=== PATIENT | female | born 1940 | race Caucasian/White ===

== ENCOUNTER → 2016-10-07 | Day surgery (SDC) | payer MEDICARE ==
[~2016-10-07] MED LIST: ATEN50 PO; BUPIVACAINE HCL PF 0.5% 10 ML VIAL ONE; CALCTAB23 PO; CARD120C4 PO; CLIN1CAP6 PO; CLINDAMYCIN PHOS 900 MG/6 ML VIAL ONE; COUM2.5T PO; COUM5TAB PO; DOXY100 PO; ESTR0.5T PO; FURO20 PO; GALA12TA PO; LACTATED RINGER'S 1000 ML INJ 1,000 ML ONE; LEVO75TA3 PO; LIPI20TA PO; MULTTAB4 PO; NAME10TA PO; ONDANSETRON HCL 4 MG/2 ML VIAL IV PUSH ONE; POTA10TA2 PO; PROPOFOL 200 MG/20 ML AMP IV ONE; SODIUM CHLORIDE 0.9% 100 ML ADDBAG IV ONE; TIOT18I INH; VITA400C28 PO
--- NOTE | 2016-10-07 13:10 | TN ---
cc: NANI WRIGHT DATE OF SURGERY: 10/07/2016 PREOPERATIVE DIAGNOSIS Atypical ductal hyperplasia of the left breast. POSTOPERATIVE DIAGNOSIS Atypical ductal hyperplasia of the left breast. PROCEDURE PERFORMED Left breast needle-localized lumpectomy. SURGEON Nani Wright ANESTHESIA General via LMA device. INDICATION The patient is a 76-year-old who had an area of microcalcifications in the lower inner left breast. Stereotactic biopsy demonstrated atypical ductal hyperplasia and she now presents for re-excision of the area. FINDINGS At the time of surgery the wire was identified at 9 o'clock, 5 cm from the nipple. Specimen mammography did demonstrate an intact wire and the biopsy clip was within the specimen. PROCEDURE After informed consent was obtained and site verification was performed, the patient was brought to the radiology suite where she underwent needle localization of her prior biopsy site using mammography. She was then brought to the major operating room where she underwent general anesthesia via an LMA device. She was given a single dose of IV clindamycin due to penicillin allergy and sequential compression hose were placed. The left breast was prepped and draped in sterile fashion. Half-strength Marcaine without epinephrine was used to infiltrate in the periareolar left breast and both sharp and electrocautery dissection were performed until the wire entry point through the skin was identified and secured with a hemostat. The wire was cut off at the skin with pin cutters and a 2-0 silk transfixion suture was placed at the wire entry point into the breast tissue. Circumferential dissection was then performed around the wire and the specimen was oriented with two sutures anteriorly, one long suture laterally, and one short suture superiorly. Specimen mammogram did demonstrate an intact wire and the biopsy clip was present. The specimen was then sent for permanent pathologic evaluation. Hemostasis was easily obtained with electrocautery and the wound was closed using interrupted 3-0 Vicryl subcutaneous sutures and a 4-0 Monocryl subcuticular suture. Steri-Strips and a sterile dressing were applied. The patient tolerated the procedure well with minimal blood loss, and she was extubated in the operating room and brought to the recovery room in good condition. MD PATRICIA Walker/KENYON /12:47 PM /12:57 PM
== END | disposition home or self-care (01) ==
LOC: ESDC 08:54
PROVIDERS: ATTEND Surgery
DX: N60.92 Unspecified benign mammary dysplasia of left breast (principal)
CPT/HCPCS: 00400; 19125; 88307; J2405; J3010; J7120

== ENCOUNTER 2017-02-20 16:30 | Inpatient (IN) | payer MEDICARE ==
[~2017-02-20] VITALS: Ht 160 cm; Wt 90.1 kg
[2017-02-20] VITALS (7 sets, daily range): BP systolic 129–162; BP diastolic 77–95; PULSE 83–100; RESP 16–20; TEMP 98.2–98.7; O2SAT 94–95
[~2017-02-20 16:30] MED LIST changes: -BUPIVACAINE HCL PF 0.5% 10 ML VIAL ONE; -CLINDAMYCIN PHOS 900 MG/6 ML VIAL ONE; -LACTATED RINGER'S 1000 ML INJ 1,000 ML ONE; -ONDANSETRON HCL 4 MG/2 ML VIAL IV PUSH ONE; -PROPOFOL 200 MG/20 ML AMP IV ONE; -SODIUM CHLORIDE 0.9% 100 ML ADDBAG IV ONE
[2017-02-20] MEDS ORDERED: SODIUM CHLOR 0.9% 1000 ML INJ 1,000 ML IV SCH (17:01)
--- NOTE | 2017-02-20 17:30 | HHI.HP ---
HPI Service [facility] Hospitalists Primary Care Physician Adri Reynolds MD Admission Diagnosis Altered mental status Chief Complaint: Lethargic, diarrhea, confusion Travel History International Travel<30 Days: No Contact w/Intl Traveler <30 Da: No Traveled to Known Affected Are: No History of Present Illness Mrs. Keith is a pleasant 77 y/o WF with A. fibrillation on chronic anticoagulation with Coumadin, HTN, hyperlipidemia, diet controlled diabetes mellitus, and dementia. Pt was brought to the ED from her local [place] by her daughter for AMS. Her daughter, Holly, is at the bedside and she states that she was called by the nursing staff at [facility] yesterday and was told that the patient didn't seem to be "acting like herself." Apparently they pts dishes were still in the sink and the kitchen was a bit messy which is unusual for her. Her daughter had a nurse go check on her as she was out of town and the nurse reported that the patient seemed to be doing well. When her daughter went to check on the patient today she noted that the patient seemed to be more confused than her baseline and was more lethargic. There was some noted diarrhea on the bedsheets and the pt was unaware of this and could not recall having had diarrhea at that time. Pt now reports two episodes of diarrhea yesterday. She relates this to foods she has eaten. She also noted some slight dizziness today and felt like she might fall but has not fallen. Described it more as vertigo like symptoms with the room spinning when she stood up but this resolved on its own. She reports that she has had this intermittent dizziness for several months, which typically occurs when she stand up. Denies any fevers/ chills, abd pain, nausea/vomiting, SOB, chest pain, or palpitations. Denies any urinary frequency, dysuria, or hematuria. No reported sore throat, cough, congestion, headache, or rhinorrhea. She reports that she has been eating and drinking normally. At the time of examination in the ED pt was noted to have what appears to be a significant dali infection in the inguinal area and under the skin folds of the lower abdomen, worse on the right side. Pt reports that this has been an issues for some time but has not reported this to anyone. Her daughter was unaware of this. Review of Systems Constitutional: DENIES: Fever, Chills Ears, nose, mouth, throat: COMPLAINS OF: Vertigo, DENIES: Nasal discharge, Throat pain, Running Nose, Sinus Pain Respiratory: DENIES: Cough, Sputum production, Shortness of breath Cardiovascular: DENIES: Chest pain, Palpitations, Dyspnea on Exertion, Lower Extremity Edema Gastrointestinal: COMPLAINS OF: Diarrhea, DENIES: Abdominal pain, Constipation , Nausea, Vomiting, Difficulty Swallowing Genitourinary: DENIES: Urinary frequency, Urinary incontinence, Urgency, Hematuria, Dysuria Musculoskeletal: DENIES: Joint pain Integumentary: COMPLAINS OF: Abnormal pigmentation (see HPI) Neurologic: DENIES: Headache, Seizures, Speech Problems, Poor Balance Psychiatric: COMPLAINS OF: Confusion, DENIES: Depression, Hallucinations, Agitation Past Family Social History Past Medical History Chronic atrial fibrillation COPD HTN Diabetes mellitus, type 2, diet controlled, Hgb A1C 6.4% in 07/2016 Dementia Hypothyroidism Hyperlipidemia IBS Peripheral neuropathy Recurrent UTI Venous insufficiency Fatty liver Diverticulosis GERD/gastritis Hx of GIB related to polypectomy site Past Surgical History Left breast lumpectomy in 09/2016, benign Appendectomy Bladder surgery Cataract surgery Total knee arthroplasty Vaginal hysterectomy Allergies: Coded Allergies: amoxicillin (Unverified Allergy, Severe, CANT REMEMBER, 02/20/17) oxybutynin (Unverified Allergy, Severe, ITCHING AND RASH, 02/20/17) penicillin G (Unverified Allergy, Severe, UNKNOWN, 02/20/17) sulfamethoxazole (Unverified Allergy, Severe, Rash, 02/20/17) trimethoprim (Unverified Allergy, Severe, Rash, 02/20/17) ezetimibe (Unverified Allergy, Unknown, PATIENT CANT REMEMBER THIS ALLERGY , 02/20/17) CAME ON MD ORDER SHEET . Family History Noncontributory Social History Pt with a hx of tobacco use, 60 pack year history Hx of alcohol use Pt is , her is in the nursing care side at [facility]. Pt lives in the [facility] at [facility] Physical Exam Vital Signs Vital Signs Date Time Temp Pulse Resp B/P (MAP) Pulse Ox O2 Delivery O2 Flow Rate FiO2 02/20/17 16:55 88 20 147/80 (102) 94 Room Air 02/20/17 16:47 98.7 02/20/17 16:32 98.2 96 20 129/89 (102) 95 Room Air Physical Exam GENERAL: This is a well-nourished, well-developed patient, in no apparent distress. SKIN: Beefy red erythema under the skin folds in the lower abdomen, worse on the right side, and in the inguinal folds. HEENT: Atraumatic. Normocephalic. No temporal or scalp tenderness. No scleral icterus. Airway patent. NECK: Trachea midline, supple, nontender. CARDIO: Irregular RESP: CTA bilaterally. No wheezes, rales, or rhonchi. ABD: +BS, soft, non-tender, nondistended. EXT: Extremities without clubbing, cyanosis, or edema. NEURO: Awake and alert. Motor and sensory grossly within normal limits. Normal speech. Septic Shock Reassessment Heart: Irregular Lungs: Clear Skin: Warm Caprini VTE Risk Assessment Caprini VTE Risk Assessment: Mod/High Risk (score >= 2) Caprini Risk Assessment Model Point Value = 1 Point Value = 2 Point Value = 3 Point Value = 5 Age 41-60 Minor surgery BMI > 25 kg/m2 Swollen legs Varicose veins or History of unexplained or recurrent spontaneous Oral contraceptives or hormone replacement Sepsis (< 1 month) Serious lung disease, including pneumonia (< 1 month) Abnormal pulmonary function Acute myocardial infarction Congestive heart failure (< 1 month) History of inflammatory bowel disease Medical patient at bed rest Age 61-74 Arthroscopic surgery Major open surgery (> 45 min) Laparoscopic surgery (> 45 min) Malignancy Confined to bed (> 72 hours) Immobilizing plaster cast Central venous access Age >= 75 History of VTE Family history of VTE Factor V Leiden Prothrombin [id number] Lupus anticoagulant Anticardiolipin antibodies Elevated serum homocysteine Heparin-induced thrombocytopenia Other congenital or acquired thrombophilia Stroke (< 1 month) Elective arthroplasty Hip, pelvis, or leg fracture Acute spinal cord injury (< 1 month) Prophylaxis Regimen Total Risk Factor Score Risk Level Prophylaxis Regimen 0-1 Low Early ambulation 2 Moderate Order ONE of the following: *Sequential Compression Device (SCD) *Heparin 5000 units SQ BID 3-4 Higher Order ONE of the following medications: *Heparin 5000 units SQ TID *Enoxaparin/Lovenox 40 mg SQ daily (WT < 150 kg, CrCl > 30 mL/min) *Enoxaparin/Lovenox 30 mg SQ daily (WT < 150 kg, CrCl > 10-29 mL/min) *Enoxaparin/Lovenox 30 mg SQ BID (WT < 150 kg, CrCl > 30 mL/min) AND/OR *Sequential Compression Device (SCD) 5 or more Highest Order ONE of the following medications: *Heparin 5000 units SQ TID (Preferred with Epidurals) *Enoxaparin/Lovenox 40 mg SQ daily (WT < 150 kg, CrCl > 30 mL/min) *Enoxaparin/Lovenox 30 mg SQ daily (WT < 150 kg, CrCl > 10-29 mL/min) *Enoxaparin/Lovenox 30 mg SQ BID (WT < 150 kg, CrCl > 30 mL/min) AND *Sequential Compression Device (SCD) Assessment and Plan Problem List: (1) Altered mental status ICD Codes: R41.82 - Altered mental status, unspecified Status: Acute Plan: - Pt is a 77 y/o female with chronic atrial fibrillation on anticoagulation with Coumadin, HTN, hyperlipidemia, dementia, and diet controlled diabetes mellitus. - Pt was brought to the ED with AMS/confusion which seemed to start around 2 days ago, etiology unclear. - Pt had some reported diarrhea and dizziness today. Labs indicate some degree of dehydration and elevated WBC count of 16.7 - Pt also with hx of recurrent UTIs and her UA is significantly abnormal. In the past she has had E. coli UTIs and the culture/sensitivities from her most recent UTI was in 07/2016 - She does have some baseline dementia but has still been quite functional. - Head CT is ordered by the ED and is pending - CXR is pending as well. - Give IVF - Check C. diff - We will give Cefepime for the abnormal UA and hx of recurrent UTI, based on the previous C/S - Await final cultures - Repeat labs in AM - Telemetry - PT evaluation - Supportive care - DVT prophylaxis with SCDs, await INR results. (2) Atrial fibrillation ICD Codes: I48.91 - Atrial fibrillation Status: Chronic Plan: - Cont. home meds - Await INR before resuming Coumadin (she has been on 5mg [id number] and 2.5mg on --) - Pts last INR was checked on 02/11 and was 2.2 (3) HTN (hypertension) ICD Codes: I10 - Hypertension Status: Chronic Plan: - Cont. home meds - Monitor (4) Diabetes ICD Codes: E11.9 - Diabetes mellitus Status: Chronic Plan: - Diet controlled diabetes - Last Hgb A1C was 6.4% 07/2016 (5) Hyperlipidemia ICD Codes: E78.5 - Hyperlipidemia Status: Chronic Plan: - Cont. home meds (6) Dementia ICD Codes: F03.90 - Dementia Status: Chronic Plan: - Cont. home meds Assessment and Plan Patient examined. Assessment and plan formulated with Frannie Jasso PA-C. I agree with the above. Physician Certification 2 Midnight Certification Type: Admission for Inpatient Services Order for Inpatient Services The services are ordered in accordance with Medicare regulations or non- Medicare payer requirements, as applicable. In the case of services not specified as inpatient-only, they are appropriately provided as inpatient services in accordance with the 2-midnight benchmark. Estimated LOS (days): 2 2 days is the estimated time the patient will need to remain in the hospital, assuming treatment plan goals are met and no additional complications. Post-Hospital Plan: Not yet determined Problem Qualifiers (1) Altered mental status: Qualified Codes: R41.82 - Altered mental status, unspecified (2) Atrial fibrillation: Qualified Codes: I48.2 - Chronic atrial fibrillation (3) HTN (hypertension): Qualified Codes: I10 - Essential (primary) hypertension (4) Diabetes: (5) Dementia: Qualified Codes: F03.90 - Unspecified dementia without behavioral disturbance Frannie Jasso Feb 20, 2017 17:30 Herber Boles MD Feb 21, 2017 21:09
[2017-02-20] MEDS: NYSTATIN 100,000 U/GM PWD 15 GM BTL TOPICAL SCH ×2 (17:45→23:16)
[2017-02-20 17:53] LABS: BACTERIA, URINE MOD /hpf; BLOOD, URINE MOD (NEG); GLUCOSE,URINE NEG (NEG); KETONE, URINE TRACE mg/dL (NEG); MUCUS URINE FEW /lpf (OCC); NITRITE,URINE NEG (NEG); SQUAMOUS EPITHELIAL CELL URINE <1 /hpf (0-5); URINE COLOR YELLOW (YELLW/STRAW)
--- NOTE | 2017-02-20 17:53 | PD ---
HPI Chief Complaint: Altered Mental Status Time Seen by Provider: 17:01 Travel History International Travel<30 days: No Contact w/Intl Traveler<30days: No Traveled to known affect area: No History of Present Illness HPI 77-year-old female that presents to the ED for evaluation of confusion and lethargy since yesterday. Per daughter who is the power of district attorney she's been more confused since yesterday. Per mother she is usually very talkative and very with it except for some confusion which is normal for her secondary to her dementia. She has a history of ventral fibrillation and frequent UTIs for which she takes doxycycline to prevent this. She takes Coumadin as well. Denies any fevers chills or sweats. Patient herself is somewhat of a good historian but she does appear to be somewhat somnolent on exam. She denies any pain of any kind. She is able to answer questions appropriately. She denies any rashes or injuries. No chest pain or shortness of breath. No head injury of any kind. Daughter is present who actually this is the patient very frequently and is the one to noted the changes in mentation since yesterday. No cough or congestion. No other medical issues at this time. Patient does have multiple allergies to different antibiotics. PFSH Past Medical History Hx Anticoagulant Therapy: Yes (COUMADIN) Anemia: Yes Arthritis: Yes (RA) Atrial Fibrillation: Yes Autoimmune Disease: No Blood Disorders: No Anxiety: No Depression: No Heart Rhythm Problems: Yes Cancer: No Cardiovascular Problems: Yes High Cholesterol: Yes Chemotherapy: No Congestive Heart Failure: Yes COPD: Yes Dementia: Yes Diabetes: Yes (PRE) Patient Takes Glucophage: No Diminished Hearing: No Endocrine: No Gastrointestinal Disorders: Yes (GI bleed. colonoscopy.) Genitourinary: Yes (UTI) Hypertension: Yes Immune Disorder: No Musculoskeletal: Yes Neurologic: Yes Psychiatric: No Reproductive: No Respiratory: Yes (HAY Fever as child) Radiation Therapy: No Sickle Cell Disease: No Thyroid Disease: Yes Triglycerides - High: Yes ?: Not : 3 Para: 3 Past Surgical History Abdominal Surgery: Yes AICD: No Appendectomy: Yes Arteriovenous Shunt: No Gynecologic Surgery: Yes Hysterectomy: Yes Insulin Pump: No Joint Replacement: Yes (LEFT KNEE) Oral Surgery: Yes (T & A) Pacemaker: No Tonsillectomy: Yes Other Surgery: Yes (CYSTOCELE,RECTOCELE 2006) Social History Alcohol Use: Yes Tobacco Use: No Substance Use: No Allergies-Medications (Allergen,Severity, Reaction): Coded Allergies: amoxicillin (Unverified Allergy, Severe, CANT REMEMBER, 02/20/17) oxybutynin (Unverified Allergy, Severe, ITCHING AND RASH, 02/20/17) penicillin G (Unverified Allergy, Severe, UNKNOWN, 02/20/17) sulfamethoxazole (Unverified Allergy, Severe, Rash, 02/20/17) trimethoprim (Unverified Allergy, Severe, Rash, 02/20/17) ezetimibe (Unverified Allergy, Unknown, PATIENT CANT REMEMBER THIS ALLERGY , 02/20/17) CAME ON MD ORDER SHEET . Reported Meds & Prescriptions Reported Meds & Active Scripts Active Review of Systems Except as stated in HPI: all other systems reviewed are Neg Physical Exam Narrative GENERAL: Somewhat lethargic but easily arousable and answers questions a properly SKIN: Warm and dry. HEAD: Atraumatic. Normocephalic. EYES: Pupils equal and round. No scleral icterus. No injection or drainage. ENT: No nasal bleeding or discharge. Mucous membranes pink and moist. Tongue is midline. No uvula deviation. NECK: Trachea midline. No JVD. CARDIOVASCULAR: Regular rate and rhythm. No murmurs, S3, S4. RESPIRATORY: No accessory muscle use. Clear to auscultation. Breath sounds equal bilaterally. GASTROINTESTINAL: Abdomen soft, non-tender, nondistended. Hepatic and splenic margins not palpable. MUSCULOSKELETAL: Extremities without clubbing, cyanosis, or edema. No obvious deformities. Full range of motion of the upper and lower extremities bilaterally. 2+ pulses bilaterally. NEUROLOGICAL: Awake and alert and oriented 4. No obvious cranial nerve deficits. Motor grossly within normal limits. Five out of 5 muscle strength in the arms and legs. Normal speech. PSYCHIATRIC: Appropriate mood and affect; insight and judgment normal. Data Data Last Documented VS Vital Signs Date Time Temp Pulse Resp B/P (MAP) Pulse Ox O2 Delivery O2 Flow Rate FiO2 02/20/17 17:35 94 Room Air 02/20/17 16:55 88 20 02/20/17 16:47 98.7 Orders Orders Electrocardiogram (02/20/17 17:01) Complete Blood Count With Diff (02/20/17 17:01) Comprehensive Metabolic Panel (02/20/17 17:01) Ckmb (Isoenzyme) Profile (02/20/17 17:01) Troponin I (02/20/17 17:) Prothrombin Time / Inr (Pt) (02/20/17:) Act Partial Throm Time (Ptt) (02/20/17 17:) Blood Culture (02/20/17 17:) Urinalysis - C+S If Indicated (02/20/17 17:) Cath For Specimen (02/20/17:) Magnesium (Mg) (02/20/17 17:) Thyroid Stimulating Hormone (02/20/17 17:01) Chest, Single Ap (02/20/17 17:) Ct Brain W/O Iv Contrast(Rout) (02/20/17 17:) Iv Access Insert/Monitor (02/20/17 17:) Ecg Monitoring (02/20/17 17:) Oximetry (02/20/17 17:) Lactic Acid Sepsis Protocol (02/20/17 17:) Sodium Chlor 0.9% 1000 Ml Inj (Ns 1000 M (02/20/17 17:01) C Diff Toxin Pcr (02/20/17 17:07) Admit To Inpatient (02/20/17 ) Scd Bilateral/Knee High JAY JAY.QSHIFT (02/20/17 17:39) Vital Signs (Adult) JAY JAY.Q4H (02/20/17 17:39) Medical Technologist Generalist / Telemetry JAY JAY.Q8H (02/20/17 17:39) Activity Oob With Assistance (02/20/17 17:39) Consult Pt Eval & Treat (02/20/17 17:39) Inpatient Certification (02/20/17 ) Nystatin Powder (Mycostatin Powder) (02/20/17 17:45) Admit Order (Ed Use Only) (02/20/17 17:49) CKMB (02/20/17 17:30) CKMB% (02/20/17 17:30) Labs Laboratory Tests Test 02/20/17 17:30 White Blood Count 16.7 TH/MM3 Red Blood Count 4.51 MIL/MM3 Hemoglobin 13.3 GM/DL Hematocrit 40.1 % Mean Corpuscular Volume 88.8 FL Mean Corpuscular Hemoglobin 29.6 PG Mean Corpuscular Hemoglobin Concent 33.3 % Red Cell Distribution Width 14.3 % Platelet Count 192 TH/MM3 Mean Platelet Volume 9.4 FL Neutrophils (%) (Auto) 87.2 % Lymphocytes (%) (Auto) 4.0 % Monocytes (%) (Auto) 8.2 % Eosinophils (%) (Auto) 0.3 % Basophils (%) (Auto) 0.3 % Neutrophils # (Auto) 14.5 TH/MM3 Lymphocytes # (Auto) 0.7 TH/MM3 Monocytes # (Auto) 1.4 TH/MM3 Eosinophils # (Auto) 0.0 TH/MM3 Basophils # (Auto) 0.1 TH/MM3 CBC Comment DIFF FINAL Differential Comment Prothrombin Time 21.2 SEC Prothromb Time International Ratio 1.9 RATIO Activated Partial Thromboplast Time 51.0 SEC Urine Color YELLOW Urine Turbidity CLOUDY Urine pH 6.0 Urine Specific [place] 1.017 Urine Protein 100 mg/dL Urine Glucose (UA) NEG mg/dL Urine Ketones TRACE mg/dL Urine Occult Blood MOD Urine Nitrite NEG Urine Bilirubin NEG Urine Urobilinogen LESS THAN 2.0 MG/DL Urine Leukocyte Esterase LARGE Urine RBC 9 /hpf Urine WBC /hpf Urine WBC Clumps MANY Urine Squamous Epithelial Cells <1 /hpf Urine Bacteria MOD /hpf Urine Mucus FEW /lpf Microscopic Urinalysis Comment CATH-CULTURE IND Blood Urea Nitrogen 23 MG/DL Creatinine 1.11 MG/DL Random Glucose 92 MG/DL Total Protein 7.3 GM/DL Albumin 3.0 GM/DL Calcium Level 9.2 MG/DL Magnesium Level 2.0 MG/DL Alkaline Phosphatase 79 U/L Aspartate Amino Transf (AST/SGOT) 31 U/L Alanine Aminotransferase (ALT/SGPT) 28 U/L Total Bilirubin 0.7 MG/DL Sodium Level 131 MEQ/L Potassium Level 3.6 MEQ/L Chloride Level 97 MEQ/L Carbon Dioxide Level 24.8 MEQ/L Anion Gap 9 MEQ/L Estimat Glomerular Filtration Rate 48 ML/MIN Lactic Acid Level 1.1 mmol/L Total Creatine Kinase 119 U/L Creatine Kinase MB 1.3 NG/ML Troponin I LESS THAN 0.02 NG/ML Thyroid Stimulating Hormone 3rd Gen 2.820 uIU/ML MDM Medical Decision Making Medical Screen Exam Complete: Yes Emergency Medical Condition: Yes Medical Record Reviewed: Yes Interpretation(s) CBC & BMP Diagram 02/20/17 17:30 Total Protein 7.3, Albumin 3.0 L, Calcium Level 9.2, Magnesium Level 2.0, Alkaline Phosphatase 79, Aspartate Amino Transf (AST/SGOT) 31, Alanine Aminotransferase (ALT/SGPT) 28, Total Bilirubin 0.[address] 02/20/171700 Signed Impressions: Service Date/Time: Monday, February 20, 2017 18:00 - CONCLUSION: Negative noncontrast CT. John Shepard MD Chest X-Ray 02/20/171700 Signed Impressions: Service Date/Time: Monday, February 20, 2017 17:51 - CONCLUSION: No acute disease. John Shepard MD EKG show a troponin fibrillation but no sign of RVR. No sign of acute ischemia or arrhythmia. Read by me and attending. UA shows UTI Differential Diagnosis Altered mental status versus UTI versus atrial fibrillation versus dementia versus CVA versus sepsis Narrative Course 77-year-old female that presents to the ED for evaluation of altered mental status. Patient was properly examined and was found to have signs and symptoms consistent with altered mental status. Patient does have a history of dementia and has had a dramatic change in the past 2 days. No sign of acute neurological deficits. Labs and imaging were ordered. She does have comorbidities for different disease. Case was discussed with Dr. Burdick who came and evaluated the patient before blood work had been done and agrees with admission to his service. Patient blood work here did show what appears to be UTI with slight leukocytosis. This was deferred to Dr. Burdick for further care. Procedures EKG Prior to Arrival: No Diagnosis Primary Impression: Altered mental status Qualified Codes: R41.82 - Altered mental status, unspecified Additional Impressions: Dementia Qualified Codes: F03.90 - Unspecified dementia without behavioral disturbance UTI (urinary tract infection) Qualified Codes: N30.01 - Acute cystitis with hematuria Atrial fibrillation Qualified Codes: I48.2 - Chronic atrial fibrillation HTN (hypertension) Qualified Codes: I10 - Essential (primary) hypertension Admitting Information Admitting Physician Requests: Admit Junior Tee Feb 20, 2017 17:53
[2017-02-20 17:54] LABS: AUTOMATED NEUTROPHIL # 14.5 TH/MM3 (1.8-7.7); BASOPHIL # 0.1 TH/MM3 (0-0.2); BASOPHIL % 0.3 % (0.0-2.0); COMMENT (UR) CATH-CULTURE IND; CULTURE IF INDICATED CATH CULTURE IND; EOSINOPHIL % 0.3 % (0.0-4.0); HEMATOCRIT 40.1 % (35.0-46.0); HEMO FLAGS DIFF FINAL; LYMPHOCYTE # 0.7 TH/MM3 (1.0-4.8); MEAN CELL VOLUME 88.8 FL (80.0-100.0); MEAN CORPUSCULAR HEMOGLOBIN 29.6 PG (27.0-34.0); MEAN CORPUSCULAR HGB CONC 33.3 % (32.0-36.0); MONO % 8.2 % (0.0-8.0); NEUT % 87.2 % (16.0-70.0); PLATELET COUNT 192 TH/MM3 (150-450); RED BLOOD COUNT 4.51 MIL/MM3 (4.00-5.30); RED CELL DISTRIBUTION WIDTH 14.3 % (11.6-17.2); WHITE BLOOD COUNT 16.7 TH/MM3 (4.0-11.0)
[2017-02-20 18:03] LABS: INTERNATIONAL NORMALIZED RATIO 1.9 RATIO; PROTHROMBIN TIME - PATIENT 21.2 SEC (9.8-11.6)
[2017-02-20 18:04] LABS: ANION GAP 9 MEQ/L (5-15); AST (GOT) 31 U/L (15-37); BICARBONATE 24.8 MEQ/L (21.0-32.0); BLOOD UREA NITROGEN 23 MG/DL (7-18); CHLORIDE 97 MEQ/L (98-107); GLOMERULAR FILTRATION RATE 48 ML/MIN (>89); POTASSIUM 3.6 MEQ/L (3.5-5.1); SODIUM (NA) 131 MEQ/L (136-145)
[2017-02-20 18:05] LABS: ALT (GPT) 28 U/L (10-53)
--- NOTE | 2017-02-20 18:08 | RADRPT ---
EXAM DATE/TIME: 02/20/2017 18:00 [facility] COMPARISON: CT BRAIN W/O CONTRAST, January 08, 2012, 20:10. INDICATIONS : Altered mental status for two days. RADIATION DOSE: 36.22 CTDIvol (mGy) MEDICAL HISTORY : Dementia. Congestive heart failure. Hypertension.diabetes SURGICAL HISTORY : Hysterectomy. ENCOUNTER: Initial ACUITY: 1 day PAIN SCALE: 0/10 LOCATION: Bilateral head TECHNIQUE: Multiple contiguous axial images were obtained of the head. Using automated exposure control and adj ustment of the mA and/or kV according to patient size, radiation dose was kept as low as reasonably a chievable to obtain optimal diagnostic quality images. DICOM format image data is available electro nically for review and comparison. FINDINGS: CEREBRUM: The ventricles are normal for age with moderate atrophic changes again noted. No evidence of midline shift, mass lesion, hemorrhage or acute infarction. No extra-axial fluid collections are seen. POSTERIOR FOSSA: The cerebellum and brainstem are intact. The 4th ventricle is midline. The cerebellopontine angle i s unremarkable. EXTRACRANIAL: The visualized portion of the orbits is intact. SKULL: The calvaria is intact. No evidence of skull fracture. CONCLUSION: Negative noncontrast CT. John Shepard MD on February 20, 2017 at 18:05 Board Certified Radiologist. This report was verified electronically.
--- NOTE | 2017-02-20 18:09 | RADRPT ---
EXAM DATE/TIME: 02/20/2017 17:51 [facility] COMPARISON: CHEST SINGLE AP, June 13, 2015, 21:44. INDICATIONS : Syncope. MEDICAL HISTORY : Hypertension. Chronic obstructive pulmonary disease. Atrial fibrillation. SURGICAL HISTORY : None. ENCOUNTER: Initial ACUITY: 1 day PAIN SCORE: 0/10 LOCATION: Bilateral chest FINDINGS: A single view of the chest demonstrates the lungs to be symmetrically aerated without evidence of mas s, infiltrate or effusion. The cardiomediastinal contours are unremarkable. Osseous structures are intact. Atherosclerotic calcifications are present in the aorta. CONCLUSION: No acute disease. John Shepard MD on February 20, 2017 at 18:08 Board Certified Radiologist. This report was verified electronically.
[2017-02-20 18:14] LABS: ALKALINE PHOSPHATASE 79 U/L (45-117); CREATINE KINASE 119 U/L (26-192); TOTAL BILIRUBIN ADULT 0.7 MG/DL (0.2-1.0)
[2017-02-20] MEDS ORDERED: ONDANSETRON HCL 4 MG/2 ML VIAL IV PRN (18:15)
[2017-02-20] MEDS ORDERED: ACETAMINOPHEN 325 MG TAB PO PRN (18:15)
[2017-02-20 18:27] LABS: CKMB 1.3 NG/ML (0.5-3.6)
[2017-02-20] MEDS ORDERED: RESP: ALBUTEROL 2.5 MG/IPRATROPIUM 0.5 MG NEB (PRN) NEB (18:30)
[2017-02-20] MEDS ORDERED: COUM5TAB PO (20:05)
[2017-02-20] MEDS ORDERED: DOXY100C PO (20:05)
[2017-02-20] MEDS ORDERED: DILT-60 PO (20:05)
[2017-02-20] MEDS ORDERED: ONCETAB7 PO (20:05)
[2017-02-20] MEDS ORDERED: SERT25TA83 PO (20:05)
[2017-02-20] MEDS ORDERED: CHOL1CAP8 PO (20:05)
[2017-02-20] MEDS ORDERED: CALC12502 PO (20:05)
[2017-02-20] MEDS ORDERED: UMEC1AER INH (20:05)
[2017-02-20] MEDS ORDERED: ATOR20TA15 PO (20:05)
[2017-02-20] MEDS ORDERED: LEVO75TA3 PO (20:05)
[2017-02-20] MEDS ORDERED: VITA10002 PO (20:05)
[2017-02-20] MEDS ORDERED: GALA16CA PO (20:05)
[2017-02-20] MEDS ORDERED: COUM2.5T PO (20:05)
[2017-02-20] MEDS ORDERED: NAME10TA PO (20:05)
[2017-02-20] MEDS ORDERED: ATEN50TA PO (20:05)
[2017-02-20] MEDS: SODIUM CHLOR 0.9% 1000 ML INJ 1,000 ML IV SCH (22:07)
[2017-02-20] MEDS: CEFEPIME INJ 1,000 MG in SODIUM CHLORIDE 0.9% INJ 100 ML IV SCH (22:09)
[2017-02-20] MEDS: MEMANTINE HCL 10 MG TAB PO SCH (22:11)
[2017-02-20] MEDS: ATENOLOL 50 MG TAB PO SCH (22:11)
[2017-02-20] MEDS: SERTRALINE HCL 50 MG TAB PO SCH (22:11)
[2017-02-20] MEDS: ATORVASTATIN 20 MG TAB PO SCH (22:12)
[2017-02-21] VITALS (8 sets, daily range): BP systolic 130–150; BP diastolic 69–92; PULSE 77–95; RESP 18–22; TEMP 97.5–98.7; O2SAT 93–97
[2017-02-21] MEDS: LEVOTHYROXINE SODIUM 75 MCG TAB PO SCH (05:11)
[2017-02-21] MEDS: NYSTATIN 100,000 U/GM PWD 15 GM BTL TOPICAL SCH ×3 (05:13→23:06)
[2017-02-21 05:56] LABS: C. DIFF EPI 027 PRESUMPTIVE NEGATIVE (NEGATIVE)
[2017-02-21] MEDS: SODIUM CHLOR 0.9% 1000 ML INJ 1,000 ML IV SCH (06:45)
[2017-02-21] MEDS: CEFEPIME INJ 1,000 MG in SODIUM CHLORIDE 0.9% INJ 100 ML IV SCH ×2 (08:00→20:24)
[2017-02-21 08:47] LABS: AUTOMATED NEUTROPHIL # 14.4 TH/MM3 (1.8-7.7); BASOPHIL % 0.3 % (0.0-2.0); EOSINOPHIL # 0.1 TH/MM3 (0-0.4); EOSINOPHIL % 0.3 % (0.0-4.0); HEMATOCRIT 38.2 % (35.0-46.0); HEMO FLAGS DIFF FINAL; LYMPH % 3.6 % (9.0-44.0); LYMPHOCYTE # 0.6 TH/MM3 (1.0-4.8); MEAN CELL VOLUME 89.7 FL (80.0-100.0); MEAN CORPUSCULAR HEMOGLOBIN 29.5 PG (27.0-34.0); MEAN CORPUSCULAR HGB CONC 32.9 % (32.0-36.0); MONO % 9.2 % (0.0-8.0); NEUT % 86.6 % (16.0-70.0); PLATELET COUNT 187 TH/MM3 (150-450); RED BLOOD COUNT 4.26 MIL/MM3 (4.00-5.30); RED CELL DISTRIBUTION WIDTH 14.5 % (11.6-17.2); WHITE BLOOD COUNT 16.6 TH/MM3 (4.0-11.0)
[2017-02-21 08:57] LABS: INTERNATIONAL NORMALIZED RATIO 2.4 RATIO; PROTHROMBIN TIME - PATIENT 27.9 SEC (9.8-11.6)
[2017-02-21] MEDS: DILTIAZEM-CD 120 MG CAP ER PO SCH (09:16)
[2017-02-21] MEDS: GALANTAMINE HYDROBROMIDE 4 MG TAB PO SCH (09:16)
[2017-02-21] MEDS: MEMANTINE HCL 10 MG TAB PO SCH ×2 (09:16→20:27)
[2017-02-21] MEDS: ATENOLOL 50 MG TAB PO SCH ×2 (09:16→20:28)
[2017-02-21] MEDS: SERTRALINE HCL 50 MG TAB PO SCH ×2 (09:16→20:27)
--- NOTE | 2017-02-21 09:33 | HHI.PR ---
Subjective Remarks ambulating with PT this AM pt says she feels better. denies any cp/sob/abdomen pain Objective Vitals mild dementia sx's not oriented to time/year heart reg lung cta abd s/nt ext no pitting lower abdomen fold/inguinal raised erythema rash/nontender Vital Signs Date Time Temp Pulse Resp B/P (MAP) Pulse Ox O2 Delivery O2 Flow Rate FiO2 02/21/17 08:14 97.9 95 22 141/76 (97) 95 02/21/17 07:26 89 02/21/17 04:00 98.4 90 18 150/81 (104) 93 02/21/17 00:00 98.0 79 18 130/69 (89) 96 02/20/17 20:00 98.2 83 18 162/95 (117) 95 02/20/17 19:00 02/20/17 17:50 88 16 162/77 (105) 94 Room Air 02/20/17 17:35 94 Room Air 02/20/17 17:20 100 16 147/83 (104) 95 Room Air 02/20/17 16:55 88 20 147/80 (102) 94 Room Air 02/20/17 16:47 98.7 02/20/17 16:32 98.2 96 20 129/89 (102) 95 Room Air Result Diagram: 02/21/17 0743 02/20/17 1730 A/P Problem List: (1) Altered mental status ICD Codes: R41.82 - Altered mental status, unspecified Status: Acute Plan: 1. mild acute delirium superimposed on mild to mod dementia. so far culprits include diarrhea with mild dehydration and maryam hyponatremia. uti 2. afib controlled. anticoagulated 3. hx recurrent uti's on chronic suppressive therapy with doxy. prior to that macrobid. 4. htn 5. hypothyroidism 6. yeast infection groin/lower abdomen gentle NS hydration. stop if na, bun/cr corrected c. diff pcr negative. PT and oob daily. ambulated this AM. OT consultation cont emperic abx to cover broadly...(reviewed her most recent u/a and cx from pcp office in 07/17...ecoli very resistant) f/u blood and urine cx's her bmp pending for today. cont topical nystatin. will update family when they arrive. (2) Atrial fibrillation ICD Codes: I48.91 - Atrial fibrillation Status: Chronic (3) HTN (hypertension) ICD Codes: I10 - Hypertension Status: Chronic Plan: - Cont. home meds - Monitor (4) Diabetes ICD Codes: E11.9 - Diabetes mellitus Status: Chronic Plan: - Diet controlled diabetes - Last Hgb A1C was 6.4% 07/2016 (5) Hyperlipidemia ICD Codes: E78.5 - Hyperlipidemia Status: Chronic Plan: - Cont. home meds (6) Dementia ICD Codes: F03.90 - Dementia Status: Chronic Plan: - Cont. home meds (7) Hypothyroid ICD Codes: E03.9 - Hypothyroidism, unspecified Status: Chronic Problem Qualifiers (1) Altered mental status: Qualified Codes: R41.82 - Altered mental status, unspecified (2) Atrial fibrillation: Qualified Codes: I48.2 - Chronic atrial fibrillation (3) HTN (hypertension): Qualified Codes: I10 - Essential (primary) hypertension (4) Diabetes: (5) Dementia: Qualified Codes: F03.90 - Unspecified dementia without behavioral disturbance Herber Boles MD Feb 21, 2017 09:33
[2017-02-21 09:44] LABS: BICARBONATE 20.9 MEQ/L (21.0-32.0); MAGNESIUM 2.1 MG/DL (1.5-2.5); POTASSIUM 3.1 MEQ/L (3.5-5.1)
[2017-02-21] MEDS ORDERED: POTASSIUM CHLORIDE 20 MEQ CONTROLLED RELEASE TAB PO ONE (10:30)
--- NOTE | 2017-02-21 13:49 | EKG ---
Date Performed: 02/20/2017 Time Performed: 17:00:36 PTAGE: 77 years EKG: ATRIAL FIBRILLATION BORDERLINE LEFT AXIS DEVIATION ABNORMAL RHYTHM ECG PREVIOUS TRACING 02/13/17 Since previous tracing, no significant change. DOCTOR: Herber Antonio Interpretating Date/Time 02/21/2017 13:48:15
[2017-02-21] MEDS ORDERED: WARFARIN SOD 5 MG TAB PO SCH (16:00)
[2017-02-21] MEDS: ATORVASTATIN 20 MG TAB PO SCH (20:28)
[2017-02-22] VITALS (8 sets, daily range): BP systolic 138–170; BP diastolic 79–97; PULSE 77–95; RESP 18; TEMP 97.8–98.4; O2SAT 91–96
[2017-02-22] MEDS: NYSTATIN 100,000 U/GM PWD 15 GM BTL TOPICAL SCH ×3 (05:16→21:28)
[2017-02-22] MEDS: LEVOTHYROXINE SODIUM 75 MCG TAB PO SCH (05:16)
[2017-02-22] MEDS: GALANTAMINE HYDROBROMIDE 4 MG TAB PO SCH (08:16)
[2017-02-22] MEDS: MEMANTINE HCL 10 MG TAB PO SCH ×2 (08:16→21:26)
[2017-02-22] MEDS: ATENOLOL 50 MG TAB PO SCH ×2 (08:16→21:25)
[2017-02-22] MEDS: CEFEPIME INJ 1,000 MG in SODIUM CHLORIDE 0.9% INJ 100 ML IV SCH (08:16)
[2017-02-22] MEDS: SERTRALINE HCL 50 MG TAB PO SCH ×2 (08:16→21:26)
[2017-02-22] MEDS: DILTIAZEM-CD 120 MG CAP ER PO SCH (08:16)
[2017-02-22 09:34] LABS: AUTOMATED NEUTROPHIL # 10.1 TH/MM3 (1.8-7.7); BASOPHIL % 0.3 % (0.0-2.0); EOSINOPHIL # 0.1 TH/MM3 (0-0.4); HEMATOCRIT 38.4 % (35.0-46.0); HEMO FLAGS DIFF FINAL; LYMPH % 4.6 % (9.0-44.0); LYMPHOCYTE # 0.5 TH/MM3 (1.0-4.8); MEAN CELL VOLUME 88.2 FL (80.0-100.0); MEAN CORPUSCULAR HEMOGLOBIN 28.9 PG (27.0-34.0); MEAN CORPUSCULAR HGB CONC 32.8 % (32.0-36.0); MONO % 9.6 % (0.0-8.0); NEUT % 84.5 % (16.0-70.0); PLATELET COUNT 207 TH/MM3 (150-450); RED BLOOD COUNT 4.36 MIL/MM3 (4.00-5.30); RED CELL DISTRIBUTION WIDTH 14.3 % (11.6-17.2); WHITE BLOOD COUNT 11.9 TH/MM3 (4.0-11.0)
[2017-02-22 09:37] LABS: INTERNATIONAL NORMALIZED RATIO 4.1 RATIO; PROTHROMBIN TIME - PATIENT 47.6 SEC (9.8-11.6)
--- NOTE | 2017-02-22 09:50 | HHI.PR ---
Subjective Remarks No new complaints. Objective Vitals Vital Signs Date Time Temp Pulse Resp B/P (MAP) Pulse Ox O2 Delivery O2 Flow Rate FiO2 02/22/17 08:22 98.1 94 18 138/97 (111) 02/22/17 04:00 98.4 95 18 159/96 (117) 93 02/22/17 03:28 79 02/22/17 00:00 97.8 77 18 142/79 (100) 96 02/21/17 20:00 97.5 77 18 138/92 (107) 96 02/21/17 15:59 98.7 86 20 150/78 (102) 97 02/21/17 12:06 97.6 85 20 137/72 (93) 96 02/22/17 02/22/17 02/23/17 15:00 23:00 07:00 Intake Total 140 ml Balance 140 ml Intake Oral 140 ml Result Diagram: 02/22/17 0908 02/21/17 0743 Imaging Last Impressions Head CT 02/20/171700 Signed Impressions: Service Date/Time: Monday, February 20, 2017 18:00 - CONCLUSION: Negative noncontrast CT. John Shepard MD Chest X-Ray 02/20/171700 Signed Impressions: Service Date/Time: Monday, February 20, 2017 17:51 - CONCLUSION: No acute disease. John Shepard MD A/P Problem List: (1) Altered mental status ICD Codes: R41.82 - Altered mental status, unspecified Status: Acute Plan: - Pt is a 77 y/o female with chronic atrial fibrillation on anticoagulation with Coumadin, HTN, hyperlipidemia, dementia, and diet controlled diabetes mellitus. - Pt was brought to the ED with AMS/confusion which seemed to start around 2 days ago, etiology unclear. - Pt had some reported diarrhea and dizziness today. Labs indicate some degree of dehydration and elevated WBC count of 16.7 - Pt also with hx of recurrent UTIs and her UA is significantly abnormal. In the past she has had E. coli UTIs and the culture/sensitivities from her most recent UTI was in 07/2016 - She does have some baseline dementia but has still been quite functional. - Head CT (02/20) --> NO acute findings - CXR (02/20) --> NO acute findings - IVF given, stopped - C. diff --> negative - Urine Cx (02/20) --> E. Coli ESBL - Pt started on Cefepime 02/21 based on the previous C/S - Consultation placed for ID. Case d/w Dr. Anderson (02/22). She will consult. - NO fever. WBC has decreased from 16.7 (02/20), 11.9 (02/22) - Continue PT - Telemetry - PT evaluation - Supportive care - DVT prophylaxis with SCDs, await INR results. (2) Infection due to ESBL-producing Escherichia coli ICD Codes: A49.8 - Other bacterial infections of unspecified site; Z16.12 - Extended spectrum beta lactamase (ESBL) resistance Plan: - see above (3) Supratherapeutic INR ICD Codes: R79.1 - Abnormal coagulation profile Plan: - stop coumadin - repeat INR in AM - currently NO signs of bleeding - consider Vitamin K, if INR continues to rise (4) Atrial fibrillation ICD Codes: I48.91 - Atrial fibrillation Status: Chronic Plan: - Cardizem CD, atenolol - see above (5) HTN (hypertension) ICD Codes: I10 - Hypertension Status: Chronic Plan: - stable - cardizem CD, atenolol (6) Diabetes ICD Codes: E11.9 - Diabetes mellitus Status: Chronic Plan: - Diet controlled diabetes - Last Hgb A1C was 6.4% 07/2016 (7) Hyperlipidemia ICD Codes: E78.5 - Hyperlipidemia Status: Chronic Plan: - Cont. home meds (8) Dementia ICD Codes: F03.90 - Dementia Status: Chronic Plan: - Cont. home meds Problem Qualifiers (1) Altered mental status: Qualified Codes: R41.82 - Altered mental status, unspecified (2) Atrial fibrillation: Qualified Codes: I48.2 - Chronic atrial fibrillation (3) HTN (hypertension): Qualified Codes: I10 - Essential (primary) hypertension (4) Diabetes: (5) Dementia: Qualified Codes: F03.90 - Unspecified dementia without behavioral disturbance Donald Rosario DO Feb 22, 2017 09:50
[2017-02-22 10:04] LABS: BICARBONATE 24.2 MEQ/L (21.0-32.0); POTASSIUM 3.4 MEQ/L (3.5-5.1)
[2017-02-22] MEDS ORDERED: POTASSIUM CHLORIDE 20 MEQ CONTROLLED RELEASE TAB PO ONE (10:30)
--- NOTE | 2017-02-22 13:31 | PD.ID.CON ---
History of Present Illness Service ID Consult Requested By Reason for Consult Evaluation and Mment of Sepsis secondary to ESBL E.coli UTI. Primary Care Physician Adri Reynolds MD Diagnoses: History of Present Illness Most of the history was from review of medical records and d.w patients daughter Holly. Mrs. Keith is a pleasant 77 y/o WF with A. fibrillation on chronic anticoagulation with Coumadin, HTN, hyperlipidemia, diet controlled diabetes mellitus, and dementia. At baseline patient lives [place] and is independent with some ADLs such as walking unassisted, self care, bathing etc. Her daughter manages her finances and bills etc. With this background patient was brought to the [facility] ED from her [place] by daughter. Her daughter, Holly states that she was called by the nursing staff at [facility] and was told that the patient didn't seem to be "acting like herself." Patient reportedly had an episode of loose BM but was unaware of this episode. Reported history of dizziness but no falls. No reported history of any fevers/chills, abd pain, nausea/vomiting, SOB, chest pain, or palpitations. No reported history of any urinary frequency, dysuria, or hematuria. No reported sore throat, cough, congestion, headache, or rhinorrhea. Daughter reports several episodes of UTI which reportedly were symptomatic and required antibiotics. Upon questioning about allergies she reports her Mom was told by her Mom to avoid penicillins but details not known. Patient has tolerated Cefepime during this hospitalization and daughter made aware. ID consulted for evaluation and Mment of Sepsis secondary to ESBL E.coli UTI. Review of Systems ROS Limitations: Altered Mental Status Past Family Social History Allergies: Coded Allergies: amoxicillin (Unverified Allergy, Severe, CANT REMEMBER, 02/20/17) oxybutynin (Unverified Allergy, Severe, ITCHING AND RASH, 02/20/17) penicillin G (Unverified Allergy, Severe, UNKNOWN, 02/20/17) sulfamethoxazole (Unverified Allergy, Severe, Rash, 02/20/17) trimethoprim (Unverified Allergy, Severe, Rash, 02/20/17) ezetimibe (Unverified Allergy, Unknown, PATIENT CANT REMEMBER THIS ALLERGY , 02/20/17) CAME ON MD ORDER SHEET . Past Medical History Chronic atrial fibrillation COPD HTN Diabetes mellitus, type 2, diet controlled, Hgb A1C 6.4% in 07/2016 Dementia Hypothyroidism Hyperlipidemia IBS Peripheral neuropathy Recurrent UTI Venous insufficiency Fatty liver Diverticulosis GERD/gastritis Hx of GIB related to polypectomy site Past Surgical History Left breast lumpectomy in 09/2016, benign Appendectomy Bladder surgery Cataract surgery Total knee arthroplasty Vaginal hysterectomy Reported Medications Reported Meds & Active Scripts Active Reported Coumadin (Warfarin) 5 Mg Tab 5 Mg PO SUN,TUES,CARMEN,SAT Coumadin (Warfarin) 2.5 Mg Tab 2.5 Mg PO MWF Sertraline (Sertraline HCl) 25 Mg Tab 25 Mg PO BID Doxycycline Hyclate 100 Mg Cap 100 Mg PO 3XWEEK Anoro Ellipta Inh (Umeclidinium/Vilanterol) 62.5-25 Mcg/Act Aero 1 Puff INH DAILY Atenolol 50 Mg Tab 50 Mg PO BID Vitamin B-12 (Cyanocobalamin) 1,000 Mcg Tab 1,000 Mcg PO DAILY Namenda (Memantine) 10 Mg Tab 10 Mg PO BID Calcium Carbonate 500 Mg Calcium (1250 Mg) Tab 1,250 Mg PO DAILY 1,250 mg calcium carbonate (500 mg elemental calcium) Once Daily (Multivitamin) 1 Each Tablet 1 Tab PO DAILY Atorvastatin (Atorvastatin Calcium) 20 Mg Tab 20 Mg PO HS Diltiazem CD 24 HR 120 Mg Caper 120 Mg PO DAILY Levothyroxine (Levothyroxine Sodium) 75 Mcg Tab 75 Mcg PO DAILY Vitamin D3 (Cholecalciferol) 400 Unit Cap 400 Units PO DAILY Galantamine ER (Galantamine Hydrobromide) 16 Mg Caper 16 Mg PO DAILY Active Ordered Medications Current Medications Medications (Trade) Dose Ordered Sig/Mary Route Start Time Stop Time Status Last Admin (Mycostatin Powder) 1 applic Q8HR TOPICAL 02/20/17 17:45 02/22/17 11:37 (Tylenol) 650 mg Q4H PRN PO 02/20/17 18:15 (Zofran Inj) 4 mg Q6H PRN IV 02/20/17 18:15 (Cardizem Cd) 120 mg DAILY PO 02/21/17 09:00 02/22/17 08:16 (Tenormin) 50 mg Q12HR PO 02/20/17 21:00 02/22/17 08:16 (Lipitor) 20 mg HS PO 9/23/17 21:00 02/21/17 20:28 (Razadyne) 16 mg DAILY PO 02/21/17 09:00 02/22/17 08:16 (Synthroid) 75 mcg DAILY@0600 PO 02/21/17 06:00 02/22/17 05:16 (Namenda) 10 mg Q12HR PO 02/20/17 21:00 02/22/17 08:16 (Zoloft) 25 mg BID PO 02/20/17 21:00 02/22/17 08:16 (Duoneb Neb) 1 ampule Q4HR NEB PRN NEB 02/20/17 18:30 (Catapres) 0.1 mg Q6H PRN PO 02/20/17 20:30 (ASP Crit: Doc ESBL, MDR A baumannii or P aer) 1 UNSCH X1 PRN .XX 02/22/17 13:45 02/23/17 13:44 ([facility]) 1 UNSCH X1 PRN XX 02/22/17 13:45 02/23/17 13:44 Ertapenem 1000 mg/ Sodium Chloride 100 ml @ 200 mls/hr Q24H IV 02/22/17 15:00 02/22/17 15:39 (Micatin 2% Cream) 1 applic Q12HR TOPICAL 02/22/17 14:00 02/22/17 14:51 (Diflucan) 100 mg DAILY PO 02/22/17 14:00 02/22/17 14:51 Family History Noncontributory to age. reviewed. Social History Pt with a hx of tobacco use, 60 pack year history Hx of alcohol use Pt is , her is in the nursing care side at [facility]. Pt lives in the [place] at [facility]. Physical Exam Vital Signs Vital Signs Date Time Temp Pulse Resp B/P (MAP) Pulse Ox O2 Delivery O2 Flow Rate FiO2 02/22/17 13:24 98.0 95 18 147/88 (107) 94 02/22/17 10:03 90 02/22/17 08:22 98.1 94 18 138/97 (111) 02/22/17 04:00 98.4 95 18 159/96 (117) 93 02/22/17 03:28 79 02/22/17 00:00 97.8 77 18 142/79 (100) 96 02/21/17 20:00 97.5 77 18 138/92 (107) 96 02/21/17 15:59 98.7 86 20 150/78 (102) 97 Physical Exam GENERAL: Obese, well-developed patient, in no apparent distress. SKIN: No rashes, ecchymoses or lesions. Cool and dry. HEAD: Atraumatic. Normocephalic. No temporal or scalp tenderness. EYES: Pupils equal round and reactive. Extraocular motions intact. No scleral icterus. No injection or drainage. ENT: Nose without bleeding, purulent drainage or septal hematoma. Throat without erythema, tonsillar hypertrophy or exudate. Uvula midline. Airway patent. NECK: Trachea midline.Supple, nontender, no meningeal signs. CARDIOVASCULAR: Regular rate and rhythm without murmurs, gallops, or rubs. RESPIRATORY: Clear to auscultation. Breath sounds equal bilaterally. No wheezes , rales, or rhonchi. GASTROINTESTINAL: Abdomen soft, non-tender, nondistended. Abdominal skin folds with erythema and moisture noted s/o fungal infection. MUSCULOSKELETAL: Extremities without clubbing, cyanosis, or edema. No joint tenderness, effusion, or edema noted. No calf tenderness. Negative Homans sign bilaterally. NEUROLOGICAL: Awake and alert.Normal speech. Oriented x 1 thinks she is at home or PCP clinic at times. Non focal exam. Psych cooperative IV line sites with no e.o infection. Laboratory Laboratory Tests Test 02/22/17 09:08 White Blood Count 11.9 Red Blood Count 4.36 Hemoglobin 12.6 Hematocrit 38.4 Mean Corpuscular Volume 88.2 Mean Corpuscular Hemoglobin 28.9 Mean Corpuscular Hemoglobin Concent 32.8 Red Cell Distribution Width 14.3 Platelet Count 207 Mean Platelet Volume 8.6 Neutrophils (%) (Auto) 84.5 Lymphocytes (%) (Auto) 4.6 Monocytes (%) (Auto) 9.6 Eosinophils (%) (Auto) 1.0 Basophils (%) (Auto) 0.3 Neutrophils # (Auto) 10.1 Lymphocytes # (Auto) 0.5 Monocytes # (Auto) 1.1 Eosinophils # (Auto) 0.1 Basophils # (Auto) 0.0 CBC Comment DIFF FINAL Differential Comment Prothrombin Time 47.6 Prothromb Time International Ratio 4.1 Blood Urea Nitrogen 13 Creatinine 0.82 Random Glucose 169 Calcium Level 8.7 Sodium Level 138 Potassium Level 3.4 Chloride Level 106 Carbon Dioxide Level 24.2 Anion Gap 8 Estimat Glomerular Filtration Rate 68 Date/Time Source Procedure Growth Status 02/21/17 07:57 Blood Peripheral Aerobic Blood Culture - Preliminary NO GROWTH IN 1 DAY Resulted 02/21/17 07:57 Blood Peripheral Anaerobic Blood Culture - Preliminary NO GROWTH IN 1 DAY Resulted 02/20/17 17:30 Urine Catheterized Urine Urine Culture - Final Escherichia Coli Esbl Positive Complete Result Diagram: 02/22/17 0908 02/22/17 0908 Imaging Last Impressions Head CT 02/20/171700 Signed Impressions: Service Date/Time: Monday, February 20, 2017 18:00 - CONCLUSION: Negative noncontrast CT. John Shepard MD Chest X-Ray 02/20/171700 Signed Impressions: Service Date/Time: Monday, February 20, 2017 17:51 - CONCLUSION: No acute disease. John Shepard MD Assessment and Plan Assessment and Plan Sepsis present on admission (Elevated WBC and tachycardia with UTI as source) ESBL E.coli UTI (prior h/o recurrent UTIs, symptomatic treated multiple times) Possible Pyelonephritis r/o kidney stones. Acute metabolic encephalopathy. Baseline dementia (on Namenda) Acute renal failure on admission: resolved. Fungal abdominal skin intertrigo. Recs DC Cefepime IV Start Ertapenem IV (ASP: ESBL E.coli UTI) Check US KUB to r/o obstructive pathology, pyelonephritis or hydronephrosis: will help determine length of treatment. Micafungin topical application. Keep skin folds dry by placing dry soft cloth in between folds and changing them twice a day at least. Open window drapes in patient room for light stimulation as patient is demented and at risk for persistent encephalopathy and . Diflucan oral for few days. Will need IV infusions on discharge will likely place midline after blood cultures negative for 72 hours. Follow cultures Follow clinically. Mary [facility] and PAAshanti hernandez Patients aishwarya Barrera in detail the etiology of ESBL e.coli, risk factors being multiple courses of antibiotics for recurrent UTIs. At risk for Cdiff as well. Plan depends on imaging results and need for further workup. Will follow along. Time spent in excess of 80 mins. Chart reviewed. Obtained history from daughter mary RN, bark press operator, . Plan d.w all care providers and family. Educated about ESBL E.coli and need for isolation. Jenny Anderson MD Feb 22, 2017 13:31
[2017-02-22] MEDS ORDERED: MISCELLANEOUS PHARMACY INFORMATION XX PRN (13:45)
[2017-02-22] MEDS ORDERED: ASP: Documented ESBL, MDR A baumannii or P. aeruginosa PRN (13:45)
[2017-02-22] MEDS: FLUCONAZOLE 100 MG TAB PO SCH (14:51)
[2017-02-22] MEDS: MICONAZOLE NITRATE 2% CREAM 15 GM TOPICAL SCH ×2 (14:51→21:28)
[2017-02-22] MEDS: ERTAPENEM INJ 1,000 MG in SODIUM CHLORIDE 0.9% INJ 100 ML IV SCH (15:39)
[2017-02-22] MEDS ORDERED: WARFARIN SOD 2.5 MG TAB PO SCH (16:00)
[2017-02-22] MEDS: ATORVASTATIN 20 MG TAB PO SCH (21:26)
--- NOTE | 2017-02-22 22:05 | RADRPT ---
EXAM DATE/TIME: 02/22/2017 20:49 [facility] COMPARISON: No previous studies available for comparison. EXTERNAL COMPARISON : [facility], CT ABDOMEN & PELVIS W/O CONTRAST, July 14, 2016Tein [facility], RENOGRAM W ITH LASIX July 14, 2016. [facility], CT ABDOMEN, W/O CONTRAST April 03, 2013. INDICATIONS : Hydronephrosis. MEDICAL HISTORY : Hypothyroidism. Hypercholesterolemia. Chronic obstructive pulmonary disease. Hypertension. Hyperlipid emia. A-fib. Dementia. CHF. UTI. Arthritis. Anemia. Blood transfusion. SURGICAL HISTORY : Tonsillectomy. Appendectomy. Hysterectomy. Left knee replacement. Cystocele removal. Rectocele remova l. ENCOUNTER: Initial ACUITY: 1 day PAIN SCORE: 0/10 LOCATION: Bilateral flank MEASUREMENTS: RIGHT KIDNEY: 12.4 x 7.0 x 5.3 cm LEFT KIDNEY: 11.8 x 5.9 x 5.3 cm FINDINGS: RIGHT KIDNEY: Renal cortex is normal in thickness and echotexture. No hydronephrosis, stone, or mass. LEFT KIDNEY: Renal cortex is normal in thickness and echotexture. No hydronephrosis, stone, or mass. BLADDER: Within normal limits given the degree of distension. CONCLUSION: Normal ultrasound of the urinary system. There is no hydronephrosis. Stiven Berg MD on February 22, 2017 at 22:03 Board Certified Radiologist. This report was verified electronically.
[2017-02-23] VITALS (8 sets, daily range): BP systolic 122–179; BP diastolic 78–103; PULSE 73–107; RESP 18–24; TEMP 97.4–98.6; O2SAT 93–97
[2017-02-23] MEDS: LEVOTHYROXINE SODIUM 75 MCG TAB PO SCH (05:58)
[2017-02-23] MEDS: cloNIDine HCL 0.1 MG TAB PO PRN ×2 (06:13→23:52)
[2017-02-23] MEDS: NYSTATIN 100,000 U/GM PWD 15 GM BTL TOPICAL SCH ×3 (06:13→22:01)
--- NOTE | 2017-02-23 08:27 | HHI.PR ---
Subjective Remarks Nurse reports that the pt seemed more SOB earlier this morning CXR just taken Spoke with the pts daughter, Holly, at the bedside and she reports that the pt is not eating much She is drinking some of the Glucerna Pt not ambulating much Objective Vitals Vital Signs Date Time Temp Pulse Resp B/P (MAP) Pulse Ox O2 Delivery O2 Flow Rate FiO2 02/23/17 04:00 98.6 82 18 96 02/23/17 00:00 98.0 107 18 141/94 (110) 93 02/22/17 20:00 98.2 88 18 161/85 (110) 94 02/22/17 17:46 98.4 89 18 170/90 (116) 91 02/22/17 13:24 98.0 95 18 147/88 (107) 94 02/22/17 10:03 90 02/22/17 08:22 98.1 94 18 138/97 (111) 02/23/17 02/23/17 02/24/17 15:00 23:00 07:00 # Voids 6 # Bowel Movements 2 Result Diagram: 02/22/17 0908 02/22/17 0908 Other Results Laboratory Tests Test 02/22/17 09:08 White Blood Count 11.9 TH/MM3 Red Blood Count 4.36 MIL/MM3 Hemoglobin 12.6 GM/DL Hematocrit 38.4 % Mean Corpuscular Volume 88.2 FL Mean Corpuscular Hemoglobin 28.9 PG Mean Corpuscular Hemoglobin Concent 32.8 % Red Cell Distribution Width 14.3 % Platelet Count 207 TH/MM3 Mean Platelet Volume 8.6 FL Neutrophils (%) (Auto) 84.5 % Lymphocytes (%) (Auto) 4.6 % Monocytes (%) (Auto) 9.6 % Eosinophils (%) (Auto) 1.0 % Basophils (%) (Auto) 0.3 % Neutrophils # (Auto) 10.1 TH/MM3 Lymphocytes # (Auto) 0.5 TH/MM3 Monocytes # (Auto) 1.1 TH/MM3 Eosinophils # (Auto) 0.1 TH/MM3 Basophils # (Auto) 0.0 TH/MM3 CBC Comment DIFF FINAL Differential Comment Prothrombin Time 47.6 SEC Prothromb Time International Ratio 4.1 RATIO Blood Urea Nitrogen 13 MG/DL Creatinine 0.82 MG/DL Random Glucose 169 MG/DL Calcium Level 8.7 MG/DL Sodium Level 138 MEQ/L Potassium Level 3.4 MEQ/L Chloride Level 106 MEQ/L Carbon Dioxide Level 24.2 MEQ/L Anion Gap 8 MEQ/L Estimat Glomerular Filtration Rate 68 ML/MIN Imaging Last Impressions Renal Ultrasound 02/22/17 0000 Signed Impressions: Service Date/Time: Wednesday, February 22, 2017 20:49 - CONCLUSION: Normal ultrasound of the urinary system. There is no hydronephrosis. Stiven Berg MD Head CT 02/20/17 170 Signed Impressions: Service Date/Time: Monday, February 20, 2017 18:00 - CONCLUSION: Negative noncontrast CT. John Shepard MD Chest X-Ray 02/20/171700 Signed Impressions: Service Date/Time: Monday, February 20, 2017 17:51 - CONCLUSION: No acute disease. John Shepard MD Objective Remarks General: NAD, Awake, alert Chest: Crackles at the right base Cardiac: Irregular Abd: +BS, soft ND, NT, fungal infection under large panus, worse on the right side Ext: No edema A/P Problem List: (1) Altered mental status ICD Codes: R41.82 - Altered mental status, unspecified Status: Acute Plan: - Pt is a 77 y/o female with chronic atrial fibrillation on anticoagulation with Coumadin, HTN, hyperlipidemia, dementia, and diet controlled diabetes mellitus. - Pt was brought to the ED with AMS/confusion which seemed to start around 2 days ago. - Pt had some reported diarrhea and dizziness on the day of admission. Labs indicate some degree of dehydration and elevated WBC count of 16.7 - Pt also with hx of recurrent UTIs and her UA is significantly abnormal. In the past she has had E. coli UTIs and the culture/sensitivities from her most recent UTI was in 07/2016 - She does have some baseline dementia but has still been quite functional. - Head CT (02/20) --> NO acute findings - CXR (02/20) --> NO acute findings - IVF given, stopped - C. diff --> negative - Urine Cx (02/20) --> E. Coli ESBL - Pt started on Cefepime 02/21 based on the previous C/S - Appreciate ID consultation. - Cefepime IV d/c on 02/22 - Pt was started on Ertapenem IV (ASP: ESBL E.coli UTI) on 02/22 - US KUB (02/22) --> Normal ultrasound of the urinary system. There is no hydronephrosis. - Per ID, pt will need IV infusions on discharge will likely place midline after blood cultures negative for 72 hours. - Blood cultures (02/21) with NGTD - NO fever. WBC has decreased from 16.7 (02/20) -->11.9 (02/22) - Continue PT - Telemetry - PT evaluation - Supportive care (2) Infection due to ESBL-producing Escherichia coli ICD Codes: A49.8 - Other bacterial infections of unspecified site; Z16.12 - Extended spectrum beta lactamase (ESBL) resistance Plan: - see above (3) Supratherapeutic INR ICD Codes: R79.1 - Abnormal coagulation profile Plan: - Coumadin stopped on 02/22 due to supra-therapeutic INR - Awaiting repeat INR today - currently NO signs of bleeding - consider Vitamin K, if INR continues to rise (4) Fungal infection of skin of abdomen ICD Codes: B36.9 - Superficial mycosis, unspecified Status: Acute Plan: - Micafungin topical application. - Diflucan - Keep skin folds dry by placing dry soft cloth in between folds and changing them at least BID (5) Atrial fibrillation ICD Codes: I48.91 - Atrial fibrillation Status: Chronic Plan: - Cardizem CD increased to 240mg today due to elevated HR and BP - Cont. Atenolol - see above (6) HTN (hypertension) ICD Codes: I10 - Hypertension Status: Chronic Plan: - stable - Cardizem CD increased today, atenolol (7) Diabetes ICD Codes: E11.9 - Diabetes mellitus Status: Chronic Plan: - Diet controlled diabetes - Last Hgb A1C was 6.4% 07/2016 (8) Hyperlipidemia ICD Codes: E78.5 - Hyperlipidemia Status: Chronic Plan: - Cont. home meds (9) Dementia ICD Codes: F03.90 - Dementia Status: Chronic Plan: - Cont. home meds - Keep window drapes in patient room open for light stimulation as patient is at risk for persistent encephalopathy and sundowning. Assessment and Plan Patient examined. Assessment and plan formulated with Frannie Jasso PA-C. I agree with the above. - Case d/w Dr. Anderson (02/23/17) - Ertapenem for E. Coli ESBL UTI - Pt already receiving metoprolol & cardizem for Afib - Elevated BP readings. Will increase cardizem for BP and observe clinical response. Problem Qualifiers (1) Altered mental status: Qualified Codes: R41.82 - Altered mental status, unspecified (2) Atrial fibrillation: Qualified Codes: I48.2 - Chronic atrial fibrillation (3) HTN (hypertension): Qualified Codes: I10 - Essential (primary) hypertension (4) Diabetes: (5) Dementia: Qualified Codes: F03.90 - Unspecified dementia without behavioral disturbance Frannie Jasso Feb 23, 2017 08:27 Donald Rosario DO Feb 23, 2017 10:36
[2017-02-23 09:02] LABS: AUTOMATED NEUTROPHIL # 8.6 TH/MM3 (1.8-7.7); BASOPHIL % 0.4 % (0.0-2.0); EOSINOPHIL # 0.1 TH/MM3 (0-0.4); EOSINOPHIL % 1.2 % (0.0-4.0); HEMATOCRIT 36.3 % (35.0-46.0); HEMO FLAGS DIFF FINAL; LYMPH % 8.3 % (9.0-44.0); LYMPHOCYTE # 0.9 TH/MM3 (1.0-4.8); MEAN CELL VOLUME 87.8 FL (80.0-100.0); MONO % 10.9 % (0.0-8.0); NEUT % 79.2 % (16.0-70.0); PLATELET COUNT 247 TH/MM3 (150-450); RED BLOOD COUNT 4.13 MIL/MM3 (4.00-5.30); RED CELL DISTRIBUTION WIDTH 13.8 % (11.6-17.2); WHITE BLOOD COUNT 10.9 TH/MM3 (4.0-11.0)
[2017-02-23] MEDS: MEMANTINE HCL 10 MG TAB PO SCH ×2 (09:07→21:57)
[2017-02-23] MEDS: DILTIAZEM-CD 120 MG CAP ER PO SCH (09:08)
[2017-02-23] MEDS: ATENOLOL 50 MG TAB PO SCH ×2 (09:09→21:57)
[2017-02-23] MEDS: MICONAZOLE NITRATE 2% CREAM 15 GM TOPICAL SCH ×2 (09:09→22:01)
[2017-02-23] MEDS: FLUCONAZOLE 100 MG TAB PO SCH (09:09)
[2017-02-23] MEDS: SERTRALINE HCL 50 MG TAB PO SCH ×2 (09:09→21:57)
[2017-02-23 09:12] LABS: INTERNATIONAL NORMALIZED RATIO 3.7 RATIO; PROTHROMBIN TIME - PATIENT 43.9 SEC (9.8-11.6)
[2017-02-23] MEDS: GALANTAMINE HYDROBROMIDE 4 MG TAB PO SCH (09:20)
[2017-02-23 09:37] LABS: BICARBONATE 24.8 MEQ/L (21.0-32.0); POTASSIUM 3.5 MEQ/L (3.5-5.1)
--- NOTE | 2017-02-23 09:43 | RADRPT ---
EXAM DATE/TIME: 02/23/2017 08:06 [facility] COMPARISON: CHEST SINGLE AP, February 20, 2017, 17:51. INDICATIONS : Short of breath. MEDICAL HISTORY : Congestive heart failure. Hypertension Diabetes. Dementia. SURGICAL HISTORY : Hysterectomy. ENCOUNTER: Subsequent ACUITY: 1 day PAIN SCORE: 0/10 LOCATION: Bilateral chest FINDINGS: Cardiomegaly. Patchy basilar atelectasis versus airspace disease right base. Aortic calcification. De generative changes of the spine. CONCLUSION: Basilar airspace disease versus atelectasis. Jaxon Bartlett MD on February 23, 2017 at 9:42 Board Certified Radiologist. This report was verified electronically.
[2017-02-23] MEDS ORDERED: DILTIAZEM-CD 120 MG CAP ER PO ONE (10:45)
[2017-02-23] MEDS: ERTAPENEM INJ 1,000 MG in SODIUM CHLORIDE 0.9% INJ 100 ML IV SCH (14:59)
[2017-02-23] MEDS: ATORVASTATIN 20 MG TAB PO SCH (21:57)
[2017-02-24] VITALS (8 sets, daily range): BP systolic 129–177; BP diastolic 70–87; PULSE 62–90; RESP 17–20; TEMP 97.6–98.2; O2SAT 95–97
[2017-02-24] MEDS: NYSTATIN 100,000 U/GM PWD 15 GM BTL TOPICAL SCH ×3 (05:55→21:04)
[2017-02-24] MEDS: LEVOTHYROXINE SODIUM 75 MCG TAB PO SCH (05:55)
[2017-02-24 06:01] LABS: AUTOMATED NEUTROPHIL # 7.6 TH/MM3 (1.8-7.7); BASOPHIL # 0.1 TH/MM3 (0-0.2); BASOPHIL % 0.7 % (0.0-2.0); EOSINOPHIL # 0.3 TH/MM3 (0-0.4); EOSINOPHIL % 2.9 % (0.0-4.0); HEMATOCRIT 35.8 % (35.0-46.0); HEMO FLAGS DIFF FINAL; LYMPH % 11.8 % (9.0-44.0); LYMPHOCYTE # 1.2 TH/MM3 (1.0-4.8); MEAN CELL VOLUME 87.8 FL (80.0-100.0); MEAN CORPUSCULAR HEMOGLOBIN 29.8 PG (27.0-34.0); MEAN CORPUSCULAR HGB CONC 33.9 % (32.0-36.0); MONO % 10.4 % (0.0-8.0); NEUT % 74.2 % (16.0-70.0); PLATELET COUNT 251 TH/MM3 (150-450); RED BLOOD COUNT 4.08 MIL/MM3 (4.00-5.30); RED CELL DISTRIBUTION WIDTH 14.4 % (11.6-17.2); WHITE BLOOD COUNT 10.2 TH/MM3 (4.0-11.0)
[2017-02-24 06:11] LABS: INTERNATIONAL NORMALIZED RATIO 3.1 RATIO; PROTHROMBIN TIME - PATIENT 35.5 SEC (9.8-11.6)
[2017-02-24 06:30] LABS: BICARBONATE 24.6 MEQ/L (21.0-32.0); MAGNESIUM 2.1 MG/DL (1.5-2.5); POTASSIUM 3.3 MEQ/L (3.5-5.1)
[2017-02-24] MEDS: GALANTAMINE HYDROBROMIDE 4 MG TAB PO SCH (09:17)
[2017-02-24] MEDS: ATENOLOL 50 MG TAB PO SCH (09:17)
[2017-02-24] MEDS: SERTRALINE HCL 50 MG TAB PO SCH ×2 (09:17→21:02)
[2017-02-24] MEDS: FLUCONAZOLE 100 MG TAB PO SCH (09:17)
[2017-02-24] MEDS: DILTIAZEM-CD 240 MG CAP ER PO SCH (09:17)
[2017-02-24] MEDS: MEMANTINE HCL 10 MG TAB PO SCH ×2 (09:17→21:03)
[2017-02-24] MEDS: MICONAZOLE NITRATE 2% CREAM 15 GM TOPICAL SCH ×2 (09:21→21:04)
--- NOTE | 2017-02-24 10:33 | HHI.PR ---
Subjective Remarks No new complaints. Objective Vitals Vital Signs Date Time Temp Pulse Resp B/P (MAP) Pulse Ox O2 Delivery O2 Flow Rate FiO2 02/24/17 08:16 97.6 87 20 131/87 (102) 95 02/24/17 05:23 97.7 77 17 156/84 (108) 96 02/24/17 02:04 62 02/24/17 00:36 98.0 77 17 177/85 (115) 95 02/23/17 23:00 79 02/23/17 20:00 97.7 82 18 151/103 (119) 96 02/23/17 16:17 97.4 85 20 136/85 (102) 97 02/23/17 16:00 100 02/23/17 11:20 97.8 73 18 122/78 (93) 96 Result Diagram: 02/24/17 0510 02/24/17 0510 Imaging Last Impressions Renal Ultrasound 02/22/17 0000 Signed Impressions: Service Date/Time: Wednesday, February 22, 2017 20:49 - CONCLUSION: Normal ultrasound of the urinary system. There is no hydronephrosis. Stiven Berg MD Head CT 02/20/171700 Signed Impressions: Service Date/Time: Monday, February 20, 2017 18:00 - CONCLUSION: Negative noncontrast CT. John Shepard MD Chest X-Ray 02/20/171700 Signed Impressions: Service Date/Time: Monday, February 20, 2017 17:51 - CONCLUSION: No acute disease. John Shepard MD Objective Remarks General: NAD, Awake, alert Chest: Crackles at the right base Cardiac: Irregular Abd: +BS, soft ND, NT, fungal infection under large panus, worse on the right side Ext: No edema A/P Problem List: (1) Altered mental status ICD Codes: R41.82 - Altered mental status, unspecified Status: Acute Plan: - Pt is a 77 y/o female with chronic atrial fibrillation on anticoagulation with Coumadin, HTN, hyperlipidemia, dementia, and diet controlled diabetes mellitus. - Pt was brought to the ED with AMS/confusion which seemed to start around 2 days ago. - Pt had some reported diarrhea and dizziness on the day of admission. Labs indicate some degree of dehydration and elevated WBC count of 16.7 - Pt also with hx of recurrent UTIs and her UA is significantly abnormal. In the past she has had E. coli UTIs and the culture/sensitivities from her most recent UTI was in 07/2016 - She does have some baseline dementia but has still been quite functional. - Head CT (02/20) --> NO acute findings - CXR (02/20) --> NO acute findings - IVF given, stopped - C. diff --> negative - Urine Cx (02/20) --> E. Coli ESBL - Pt started on Cefepime 02/21 based on the previous C/S - Appreciate ID consultation. - Cefepime IV d/c on 02/22 - Pt was started on Ertapenem IV (ASP: ESBL E.coli UTI) on 02/22 - US KUB (02/22) --> Normal ultrasound of the urinary system. There is no hydronephrosis. - Per ID, pt will need IV infusions on discharge will likely place midline after blood cultures negative for 72 hours. - Blood cultures (02/21) with NGTD - NO fever. WBC has decreased from 16.7 (02/20) -->11.9 (02/22), 10.2 (02/24) - Continue PT - awaiting negative blood cx x 72h. Results should be available 02/25. - If blood cx negative then, will place midline and anticipate d/c 02/25 or 02/26 - Telemetry - Supportive care (2) Infection due to ESBL-producing Escherichia coli ICD Codes: A49.8 - Other bacterial infections of unspecified site; Z16.12 - Extended spectrum beta lactamase (ESBL) resistance Plan: - see above (3) Supratherapeutic INR ICD Codes: R79.1 - Abnormal coagulation profile Plan: - Coumadin stopped on 02/22 due to supra-therapeutic INR - Awaiting repeat INR today - currently NO signs of bleeding - consider Vitamin K, if INR continues to rise (4) Fungal infection of skin of abdomen ICD Codes: B36.9 - Superficial mycosis, unspecified Status: Acute Plan: - Micafungin topical application. - Diflucan - Keep skin folds dry by placing dry soft cloth in between folds and changing them at least BID (5) Atrial fibrillation ICD Codes: I48.91 - Atrial fibrillation Status: Chronic Plan: - Cardizem CD increased to 240mg today due to elevated HR and BP - Cont. Atenolol - see above (6) HTN (hypertension) ICD Codes: I10 - Hypertension Status: Chronic Plan: - stable - Cardizem CD increased 02/23, atenolol - continue to observe BP readings (7) Diabetes ICD Codes: E11.9 - Diabetes mellitus Status: Chronic Plan: - Diet controlled diabetes - Last Hgb A1C was 6.4% 07/2016 (8) Hyperlipidemia ICD Codes: E78.5 - Hyperlipidemia Status: Chronic Plan: - Cont. home meds (9) Dementia ICD Codes: F03.90 - Dementia Status: Chronic Plan: - Cont. home meds - Keep window drapes in patient room open for light stimulation as patient is at risk for persistent encephalopathy and sundowning. Problem Qualifiers (1) Altered mental status: Qualified Codes: R41.82 - Altered mental status, unspecified (2) Atrial fibrillation: Qualified Codes: I48.2 - Chronic atrial fibrillation (3) HTN (hypertension): Qualified Codes: I10 - Essential (primary) hypertension (4) Diabetes: (5) Dementia: Qualified Codes: F03.90 - Unspecified dementia without behavioral disturbance Donald Rosario DO Feb 24, 2017 10:33
[2017-02-24] MEDS ORDERED: POTASSIUM CHLORIDE 20 MEQ CONTROLLED RELEASE TAB PO ONE (11:00)
[2017-02-24] MEDS: ERTAPENEM INJ 1,000 MG in SODIUM CHLORIDE 0.9% INJ 100 ML IV SCH (15:00)
--- NOTE | 2017-02-24 20:34 | MB ---
cc: HELLEN ROJAS MD DATE OF CONSULTATION 02/24/17 INDICATION Bradycardia. HISTORY OF PRESENT ILLNESS This is a very nice 77-year-old female. She has a history of chronic atrial fibrillation on anticoagulation in addition to hypertension, hyperlipidemia and diabetes. She does not recall if she actually has a mold capper. She has been a little confused. She actually presented to the emergency department from her local assisted living facility after the facility describes some mental status changes. She seemed more confused and lethargic. At her initial presentation she did have a little bit of diarrhea, thought to be slightly dehydrated. IV fluids were initiated. She had an extensive workup which ultimately revealed a urinary tract infection which she is being treated for. She was noted to have bradycardia with intermediate to prolonged pauses. She was asymptomatic with this. There is no episodes of tachycardia. She denies any chest pain, lightheadedness, dizziness. This occurred while she was just resting, lying in bed. She does not recall any prior cardiovascular workup. Dr. Rosario asked us to get involved to make sure that there is nothing that would be needed further such as a pacemaker. PAST MEDICAL HISTORY As mentioned above, chronic atrial fibrillation, COPD, hypertension, diabetes, dementia, hypothyroidism, hyperlipidemia. Irritable bowel syndrome, peripheral neuropathy, recurrent urinary tract infections, venous insufficiency, diverticulosis, gastroesophageal reflux disease. ALLERGIES SHE HAS MULTIPLE ALLERGIES INCLUDING AMOXICILLIN, OXYBUTYNIN, PENICILLIN, SULFAMETHOXAZOLE, TRIMETHOPRIM, EZETIMIBE OTHERWISE KNOWN ZETIA. FAMILY HISTORY Denies any family history of early coronary artery disease, sudden cardiac . SOCIAL HISTORY History of tobacco use, a 60 pack-year history. Denies any alcohol use. Currently lives at [facility] living [facility]. REVIEW OF SYSTEMS 12-point review of systems was performed, negative unless otherwise noted in the history of present illness. PHYSICAL EXAMINATION VITAL SIGNS: Temperature 97, pulse 69, blood pressure 129/71 mmHg. GENERAL: Alert and oriented times three, no acute distress. HEENT: Exam shows pupils are reactive to light and accommodation. Extraocular movements are intact. NECK: No elevation in jugular venous distension. No thyromegaly or lymphadenopathy. No carotid bruits. LUNGS: Clear to auscultation bilaterally. CARDIOVASCULAR: Irregular irregular rhythm, 1/6 systolic murmur. LUNGS: Clear to auscultation bilaterally. ABDOMEN: Nontender, nondistended. Good bowel sounds. No hepatosplenomegaly. EXTREMITIES: No clubbing, cyanosis or edema. Good peripheral pulses. NEURO: Cranial nerves intact. Motor, sensory grossly intact. LABORATORY DATA WBC 10.2, hemoglobin 12.2, platelet count 251, INR is 3.1, sodium 137, potassium 3.1, BUN 17, creatinine 0.84. ASSESSMENT 1. Atrial fibrillation. 2. History of diabetes, hypertension, hyperlipidemia, acute mental status change secondary to likely a urinary tract infection. PLAN She is asymptomatic. The pauses are less than 3 seconds. She has some episodes of heart rates in the 40s. She is lying in bed comfortable. She may have had increased vagal tone. She is on both atenolol and diltiazem without tachycardic episodes. For right now will go ahead and just hold the atenolol and see how her heart responds. If she has tachy-jazmine syndrome with difficult to control heart rate due to subsequent tachycardia, then she is going to need a pacemaker. She had no chest pain, no reason for a stress test. Echocardiogram really is not going to change any management and we can always do that as an outpatient if necessary. Will follow along. If the heart rate recovers she can follow up as an outpatient. MD DORENE Bland/JT /5:42 PM /8:12 PM THIERRY
[2017-02-24] MEDS: ATORVASTATIN 20 MG TAB PO SCH (21:03)
[2017-02-25] VITALS (10 sets, daily range): BP systolic 88–189; BP diastolic 49–113; PULSE 69–112; RESP 17–20; TEMP 97.6–98.5; O2SAT 94–99
[2017-02-25] MEDS: LEVOTHYROXINE SODIUM 75 MCG TAB PO SCH (06:00)
[2017-02-25] MEDS: NYSTATIN 100,000 U/GM PWD 15 GM BTL TOPICAL SCH ×3 (06:00→21:32)
--- NOTE | 2017-02-25 06:43 | HHI.FF ---
Infusion Therapy Location of Infusion Therapy: [facility] Infusion Therapy Order Patient Information Appointment Date: Feb 25, 2017 Patient Weight 90.1 kg Diagnosis: Diagnosis ESBL E.coli UTI Coded Allergies: oxybutynin (Unverified Allergy, Severe, ITCHING AND RASH, 02/20/17) sulfamethoxazole (Unverified Allergy, Severe, Rash, 02/20/17) trimethoprim (Unverified Allergy, Severe, Rash, 02/20/17) amoxicillin (Verified Allergy, Mild, CANT REMEMBER, 02/25/17) Tolerated Cefepime and Ertapenem normal doses 02/22/17 admission penicillin G (Verified Allergy, Mild, UNKNOWN, 02/25/17) Tolerated Cefepime and Ertapenem normal doses 02/22/17 admission ezetimibe (Unverified Allergy, Unknown, PATIENT CANT REMEMBER THIS ALLERGY , 02/20/17) CAME ON MD ORDER SHEET . Administer Medication Ertapenem 1 gram IV q 24 hours Start Treatment: Feb 25, 2017 Stop Treatment: Mar 04, 2017 Additional Information Venous access: Other (midline) Additional Instructions [x] Peripheral flush and dressing changes per protocol [x] Implanted port and central liner assembler: * Implanted port: 10 ml Normal Saline followed by 5 ml Heparin 100 units/ml Heparin flush after each use and monthly to maintain. [] May leave port accessed during therapy. [] May leave peripheral site accessed for duration of therapy. [x] If patient has SOB or respiratory distress, check oxygen saturation. If less than 90% or clinical signs of respiratory distress, administer oxygen at 2 L/min. via nasal cannula and notify physician. [x] Anaphylaxis/Reaction orders: * Stop infusion. * Keep IV line open with saline flush. * Notify physician. * Monitor vital signs every 15 minutes until symptoms resolve. * Check Oxygen saturation; Oxygen at 2 L/min. via nasal cannula if less than 90% or clinical signs of respiratory distress. * Administer diphenhydramine (Benadryl) 25 mg IV STAT, (unless patient has received as pre-med). May repeat once, if necessary. * Solu-Cortef 250 mg IVP over 30-60 seconds, use 100 mg vials for each dissolution. * Epinephrine (1mg/1 ml) 0.3 mg subcutaneously or IVP now with any signs of respiratory distress. * Check with physician for new additional pre-med orders if patient is re- challenged or re-treated. [x] May remove PICC line when treatment complete, after confirming with Physician. [x] If the patient is admitted to the hospital, the ED, or transferred via [facility] , complete transfer form including medication reconciliation order sheet. Laboratory Tests Weekly Labs: CBC w/diff, Creatinine, CRP, LFT's (Hepatic function test) Additional Information Please draw weekly labs, call with abnormals, change in clinical condition or problems to primary care at care home and to or covering ID Physician Follow up appt: Follow up with PCP Follow up with other MDs as planned. Counseling: Counseled about medication side effects Counseled about PICC/midline care and hand hygiene. Jenny Anderson MD Feb 25, 2017 06:43
--- NOTE | 2017-02-25 06:44 | HHI.PR ---
Addendum to Inpatient Note Additional Information d/w Dr.Schwartz perez clinically much improved. Patient seen chatting with nursing staff, sitting in chair. Ertapenem orders in EMAR and post hospital infusion orders in chart. Please fax to receiving facility. Will sign off please call back if any change in clinical condition or questions. Jenny Anderson MD Feb 25, 2017 06:44
--- NOTE | 2017-02-25 07:56 | EKG ---
Date Performed: 02/24/2017 Time Performed: 15:20:16 PTAGE: 77 years EKG: ATRIAL FIBRILLATION POSSIBLE ANTERIOR MYOCARDIAL INFARCTION , PROBABLY OLD ABNORMAL RHYTHM ECG PREVIOUS TRACING : 02/20/2017 17.00 DOCTOR: Batool Rose Interpretating Date/Time 02/25/2017 07:55:05
[2017-02-25] MEDS: GALANTAMINE HYDROBROMIDE 4 MG TAB PO SCH (08:28)
[2017-02-25] MEDS: SERTRALINE HCL 50 MG TAB PO SCH ×2 (08:28→21:31)
[2017-02-25] MEDS: DILTIAZEM-CD 240 MG CAP ER PO SCH (08:29)
[2017-02-25] MEDS: MEMANTINE HCL 10 MG TAB PO SCH ×2 (08:29→21:32)
[2017-02-25] MEDS: FLUCONAZOLE 100 MG TAB PO SCH (08:29)
[2017-02-25 09:19] LABS: BICARBONATE 27.1 MEQ/L (21.0-32.0); POTASSIUM 3.7 MEQ/L (3.5-5.1)
[2017-02-25] MEDS: MICONAZOLE NITRATE 2% CREAM 15 GM TOPICAL SCH ×2 (09:50→21:00)
--- NOTE | 2017-02-25 11:07 | PD.CARD.PN ---
Subjective Subjective Remarks no events Objective Vital Signs / I&O Vital Signs Date Time Temp Pulse Resp B/P (MAP) Pulse Ox O2 Delivery O2 Flow Rate FiO2 02/25/17 08:00 97.6 97 20 169/81 (110) 94 02/25/17 04:00 98.5 69 20 122/88 (99) 95 02/25/17 00:00 98.2 81 20 147/113 (124) 96 02/24/17 21:00 83 02/24/17 20:00 97.9 90 20 144/80 (101) 97 02/24/17 15:45 97.6 69 20 129/71 (90) 96 02/24/17 12:05 98.2 75 20 144/70 (94) 96 I/O 02/24/17 02/24/17 02/24/17 02/25/17 02/25/17 02/25/17 07:00 15:00 23:00 07:00 15:00 23:00 Intake Total 480 ml 360 ml Balance 480 ml 360 ml Intake Oral 480 ml 360 ml # Voids 4 4 # Bowel Movements 1 Physical Exam NECK: Supple, trachea midline. No JVD or lymphadenopathy. CARDIOVASCULAR: Irregular irregular RESPIRATORY: Breath sounds equal bilaterally. No accessory muscle use. GASTROINTESTINAL: Abdomen soft, non-tender, nondistended. MUSCULOSKELETAL: No cyanosis, or edema. BACK: Nontender without obvious deformity. No CVA tenderness. Laboratory Laboratory Tests Test 02/25/17 07:55 Blood Urea Nitrogen 8 MG/DL Creatinine 0.69 MG/DL Random Glucose 111 MG/DL Calcium Level 8.4 MG/DL Magnesium Level 2.0 MG/DL Sodium Level 140 MEQ/L Potassium Level 3.7 MEQ/L Chloride Level 105 MEQ/L Carbon Dioxide Level 27.1 MEQ/L Anion Gap 8 MEQ/L Estimat Glomerular Filtration Rate 82 ML/MIN Assessment and Plan Assessment and Plan afib - no further bradycardia. cont current regimen. hold BB call with further question will sign off Andrea Collier MD Feb 25, 2017 11:07
[2017-02-25] MEDS ORDERED: LORazepam 2 MG/ML VIAL IV PUSH PRN (15:00)
[2017-02-25] MEDS: ERTAPENEM INJ 1,000 MG in SODIUM CHLORIDE 0.9% INJ 100 ML IV SCH (15:08)
--- NOTE | 2017-02-25 17:24 | HHI.PR ---
Subjective Remarks Pt having difficulties with agitation last night and again this evening. Objective Vitals Vital Signs Date Time Temp Pulse Resp B/P (MAP) Pulse Ox O2 Delivery O2 Flow Rate FiO2 02/25/17 16:00 97.7 97 20 168/79 (108) 97 02/25/17 12:00 97.6 99 20 169/77 (107) 95 02/25/17 08:00 97.6 97 20 169/81 (110) 94 02/25/17 04:00 98.5 69 20 122/88 (99) 95 02/25/17 00:00 98.2 81 20 147/113 (124) 96 02/24/17 21:00 83 02/24/17 20:00 97.9 90 20 144/80 (101) 97 02/25/17 02/25/17 02/26/17 15:00 23:00 07:00 # Voids 5 # Bowel Movements 1 Result Diagram: 02/24/17 0510 02/25/17 0755 Imaging Last Impressions Chest X-Ray 02/23/17 0000 Signed Impressions: Service Date/Time: Thursday, February 23, 2017 08:06 - CONCLUSION: Basilar airspace disease versus atelectasis. Jaxon Bartlett MD Renal Ultrasound 02/22/17 0000 Signed Impressions: Service Date/Time: Wednesday, February 22, 2017 20:49 - CONCLUSION: Normal ultrasound of the urinary system. There is no hydronephrosis. Stiven Berg MD Head CT 02/20/17 1701 Signed Impressions: Service Date/Time: Monday, February 20, 2017 18:00 - CONCLUSION: Negative noncontrast CT. John Shepard MD Objective Remarks General: NAD, Awake, alert Chest: clear x b/l Cardiac: Irregular Abd: +BS, soft ND, NT, fungal infection under large panus, worse on the right side Ext: No edema A/P Problem List: (1) Altered mental status ICD Codes: R41.82 - Altered mental status, unspecified Status: Acute Plan: - comgmt with ID - Pt is a 77 y/o female with chronic atrial fibrillation on anticoagulation with Coumadin, HTN, hyperlipidemia, dementia, and diet controlled diabetes mellitus. - Pt was brought to the ED with AMS/confusion which seemed to start around 2 days ago. - Pt had some reported diarrhea and dizziness on the day of admission. Labs indicate some degree of dehydration and elevated WBC count of 16.7 - Pt also with hx of recurrent UTIs and her UA is significantly abnormal. In the past she has had E. coli UTIs and the culture/sensitivities from her most recent UTI was in 07/2016 - She does have some baseline dementia but has still been quite functional. - Head CT (02/20) --> NO acute findings - CXR (02/20) --> NO acute findings - IVF given, stopped - C. diff --> negative - Urine Cx (02/20) --> E. Coli ESBL - Pt started on Cefepime 02/21 based on the previous C/S - Appreciate ID consultation. - Cefepime IV d/c on 02/22 - Pt was started on Ertapenem IV (ASP: ESBL E.coli UTI) on 02/22, continue thru 03/01 - US KUB (02/22) --> Normal ultrasound of the urinary system. There is no hydronephrosis. - Blood cultures (02/21) with NGTD - NO fever. WBC has decreased from 16.7 (02/20) -->11.9 (02/22), 10.2 (02/24) - Continue PT - Pt having agitation likely dementia related, sundowning - pt agitated and has pulled out midline twice - trial of Risperdal 0.5mg hs (2) Infection due to ESBL-producing Escherichia coli ICD Codes: A49.8 - Other bacterial infections of unspecified site; Z16.12 - Extended spectrum beta lactamase (ESBL) resistance Status: Acute Plan: - see above (3) Supratherapeutic INR ICD Codes: R79.1 - Abnormal coagulation profile Status: Acute Plan: - Coumadin stopped on 02/22 due to supra-therapeutic INR - Awaiting repeat INR today - currently NO signs of bleeding - consider Vitamin K, if INR continues to rise (4) Fungal infection of skin of abdomen ICD Codes: B36.9 - Superficial mycosis, unspecified Status: Acute Plan: - Micafungin topical application. - Diflucan - Keep skin folds dry by placing dry soft cloth in between folds and changing them at least BID (5) Atrial fibrillation ICD Codes: I48.91 - Atrial fibrillation Status: Acute Plan: - Cardizem CD increased to 240mg today due to elevated HR and BP - Cont. Atenolol - see above (6) HTN (hypertension) ICD Codes: I10 - Hypertension Status: Chronic Plan: - stable - Cardizem CD increased 02/23, atenolol - continue to observe BP readings (7) Diabetes ICD Codes: E11.9 - Diabetes mellitus Status: Chronic Plan: - Diet controlled diabetes - Last Hgb A1C was 6.4% 07/2016 (8) Hyperlipidemia ICD Codes: E78.5 - Hyperlipidemia Status: Chronic Plan: - Cont. home meds (9) Dementia ICD Codes: F03.90 - Dementia Status: Acute Plan: - Cont. home meds - Keep window drapes in patient room open for light stimulation as patient is at risk for persistent encephalopathy and sundowning. Problem Qualifiers (1) Altered mental status: Qualified Codes: R41.82 - Altered mental status, unspecified (2) Atrial fibrillation: Qualified Codes: I48.2 - Chronic atrial fibrillation (3) HTN (hypertension): Qualified Codes: I10 - Essential (primary) hypertension (4) Diabetes: (5) Dementia: Qualified Codes: F03.90 - Unspecified dementia without behavioral disturbance Donald Rosario DO Feb 25, 2017 17:24
[2017-02-25] MEDS: cloNIDine HCL 0.1 MG TAB PO PRN (17:47)
[2017-02-25] MEDS: risperiDONE 0.5 MG TAB PO SCH (21:31)
[2017-02-25] MEDS: ATORVASTATIN 20 MG TAB PO SCH (21:31)
[2017-02-26] VITALS (8 sets, daily range): BP systolic 121–163; BP diastolic 73–92; PULSE 62–104; RESP 18–20; TEMP 97.8–98.4; O2SAT 91–95
[2017-02-26] MEDS: NYSTATIN 100,000 U/GM PWD 15 GM BTL TOPICAL SCH ×3 (06:00→21:43)
[2017-02-26] MEDS: LEVOTHYROXINE SODIUM 75 MCG TAB PO SCH (06:12)
[2017-02-26 08:08] LABS: INTERNATIONAL NORMALIZED RATIO 2.4 RATIO; PROTHROMBIN TIME - PATIENT 27.4 SEC (9.8-11.6)
[2017-02-26] MEDS: SERTRALINE HCL 50 MG TAB PO SCH ×2 (09:00→21:39)
[2017-02-26] MEDS: MEMANTINE HCL 10 MG TAB PO SCH ×2 (09:49→21:39)
[2017-02-26] MEDS: GALANTAMINE HYDROBROMIDE 4 MG TAB PO SCH (09:49)
[2017-02-26] MEDS: DILTIAZEM-CD 240 MG CAP ER PO SCH (09:49)
[2017-02-26] MEDS: FLUCONAZOLE 100 MG TAB PO SCH (09:51)
[2017-02-26] MEDS: MICONAZOLE NITRATE 2% CREAM 15 GM TOPICAL SCH ×2 (09:52→21:00)
[2017-02-26] MEDS: ERTAPENEM INJ 1,000 MG in SODIUM CHLORIDE 0.9% INJ 100 ML IV SCH (14:16)
[2017-02-26] MEDS ORDERED: DILTIAZEM INJ 125 MG in SODIUM CHLORIDE 0.9% INJ 100 ML IV PRN (16:00)
[2017-02-26] MEDS ORDERED: DILTIAZEM HCL 25 MG/5 ML VIAL IV PUSH ONE (16:00)
--- NOTE | 2017-02-26 17:19 | HHI.PR ---
Subjective Remarks Pt calm and cooperative during my interview. Pt with some degree of confusion about the details of her medical conditions. Objective Vitals Vital Signs Date Time Temp Pulse Resp B/P (MAP) Pulse Ox O2 Delivery O2 Flow Rate FiO2 02/26/17 12:38 98.4 62 18 157/82 (107) 95 02/26/17 08:31 98.4 95 18 158/81 (106) 95 02/26/17 04:00 97.8 87 18 154/84 (107) 94 02/26/17 00:00 98.1 74 20 163/91 (115) 91 02/26/17 00:00 98.1 74 20 163/91 (115) 91 02/25/17 20:00 97.9 85 18 177/92 (120) 94 02/25/17 19:00 112 02/25/17 18:53 69 02/25/17 17:29 94 20 189/88 (121) 99 02/26/17 02/26/17 02/27/17 15:00 23:00 07:00 # Bowel Movements 1 Result Diagram: 02/24/17 0510 02/25/17 0755 Imaging Last Impressions Chest X-Ray 02/23/17 0000 Signed Impressions: Service Date/Time: Thursday, February 23, 2017 08:06 - CONCLUSION: Basilar airspace disease versus atelectasis. Jaxon Bartlett MD Renal Ultrasound 02/22/17 0000 Signed Impressions: Service Date/Time: Wednesday, February 22, 2017 20:49 - CONCLUSION: Normal ultrasound of the urinary system. There is no hydronephrosis. Stiven Berg MD Head CT 02/20/17 1701 Signed Impressions: Service Date/Time: Monday, February 20, 2017 18:00 - CONCLUSION: Negative noncontrast CT. John Shepard MD Objective Remarks GENERAL: NAD CARDIOVASCULAR: irregular, tachycardic RESPIRATORY: Clear to auscultation. Breath sounds equal bilaterally. No wheezes , rales, or rhonchi. GASTROINTESTINAL: Abdomen soft, non-tender, nondistended. Normal active bowel sounds MUSCULOSKELETAL: Extremities without clubbing, cyanosis, or edema. NEURO: Alert & Oriented x3, but with some degree of confusion, RAUSCH A/P Problem List: (1) Altered mental status ICD Codes: R41.82 - Altered mental status, unspecified Status: Acute Plan: - comgmt with ID - Pt is a 77 y/o female with chronic atrial fibrillation on anticoagulation with Coumadin, HTN, hyperlipidemia, dementia, and diet controlled diabetes mellitus. - Pt was brought to the ED with AMS/confusion which seemed to start around 2 days ago. - Pt had some reported diarrhea and dizziness on the day of admission. Labs indicate some degree of dehydration and elevated WBC count of 16.7 - Pt also with hx of recurrent UTIs and her UA is significantly abnormal. In the past she has had E. coli UTIs and the culture/sensitivities from her most recent UTI was in 07/2016 - She does have some baseline dementia but has still been quite functional. - Head CT (02/20) --> NO acute findings - CXR (02/20) --> NO acute findings - Pt received course of IVFs. - C. diff --> negative - Urine Cx (02/20) --> E. Coli ESBL - Pt started on Cefepime 02/21 - 02/22 based on the previous C/S - Appreciate ID consultation. - Pt was started on Ertapenem IV (ESBL E.coli UTI) on 02/22 to be continued thru 03/01 - US KUB (02/22) --> Normal ultrasound of the urinary system. There is no hydronephrosis. - Blood cultures (02/21) showed no growth - NO fever. WBC has decreased from 16.7 (02/20) -->11.9 (02/22), 10.2 (02/24) - Continue PT - Case d/w pt's daughter Ms. Holly Richter. - Ms. Richter expressed that she was NOT satisfied with my care of the pt and communication. - Case d/w Dr. Boles who will assume care of the patient - Per Ms. Richter's request, case d/w pt's son Mr. Harrison Keith. Details of the case related to Mr. Keith. (2) Dementia ICD Codes: F03.90 - Dementia Status: Acute Plan: - pt having difficulties with sundowning behavior - pt pulling out line - pt had a fall without reported injury - nursing staff related impulsive behavior related to fall - pt started on Risperdal 0.5mg nightly 02/26/17 - Pt has required restraints at times for pt safety (3) Atrial fibrillation ICD Codes: I48.91 - Atrial fibrillation Status: Acute Plan: - Cardizem CD increased to 240mg today due to elevated HR and BP - atenolol stopped by Cardiology following Cardiology consult - Pt with Evy Burks RVR - telemetry reviewed. Pt with HR generally running 100-120 - will give additional cardizem 30mg PO short acting - consult placed to Cardiology. Cardiology Dr. Marcos (covering for [facility]) alerted to the consult. - see above (4) Infection due to ESBL-producing Escherichia coli ICD Codes: A49.8 - Other bacterial infections of unspecified site; Z16.12 - Extended spectrum beta lactamase (ESBL) resistance Status: Acute Plan: - see above (5) Supratherapeutic INR ICD Codes: R79.1 - Abnormal coagulation profile Status: Acute Plan: - Coumadin stopped on 02/22 due to supra-therapeutic INR - INR 2.4 (02/26) - repeat INR in AM (6) Fungal infection of skin of abdomen ICD Codes: B36.9 - Superficial mycosis, unspecified Status: Acute Plan: - Micafungin topical application. - Diflucan - Keep skin folds dry by placing dry soft cloth in between folds and changing them at least BID (7) HTN (hypertension) ICD Codes: I10 - Hypertension Status: Chronic Plan: - stable - Cardizem CD increased 02/23, atenolol - continue to observe BP readings (8) Diabetes ICD Codes: E11.9 - Diabetes mellitus Status: Chronic Plan: - Diet controlled diabetes - Last Hgb A1C was 6.4% 07/2016 Problem Qualifiers (1) Altered mental status: Qualified Codes: R41.82 - Altered mental status, unspecified (2) Dementia: Qualified Codes: F03.90 - Unspecified dementia without behavioral disturbance (3) Atrial fibrillation: Qualified Codes: I48.2 - Chronic atrial fibrillation (4) HTN (hypertension): Qualified Codes: I10 - Essential (primary) hypertension (5) Diabetes: Donald Rosario DO Feb 26, 2017 17:19
[2017-02-26] MEDS ORDERED: DILTIAZEM HCL 30 MG TAB PO ONE (18:00)
[2017-02-26] MEDS ORDERED: DILTIAZEM HCL 30 MG TAB PO SCH (18:00)
[2017-02-26] MEDS ORDERED: ATENOLOL 25 MG TAB PO ONE (20:45)
[2017-02-26] MEDS ORDERED: PILL SPLITTER OTHER PRN (20:45)
[2017-02-26] MEDS: risperiDONE 0.5 MG TAB PO SCH (21:39)
[2017-02-26] MEDS: ATORVASTATIN 20 MG TAB PO SCH (21:39)
[2017-02-27] VITALS (7 sets, daily range): BP systolic 132–147; BP diastolic 73–99; PULSE 65–99; RESP 14–20; TEMP 97.2–98.5; O2SAT 93–96
[2017-02-27] MEDS: LEVOTHYROXINE SODIUM 75 MCG TAB PO SCH (05:43)
[2017-02-27] MEDS: NYSTATIN 100,000 U/GM PWD 15 GM BTL TOPICAL SCH ×3 (05:44→22:20)
[2017-02-27 09:49] LABS: INTERNATIONAL NORMALIZED RATIO 1.7 RATIO; PROTHROMBIN TIME - PATIENT 19.5 SEC (9.8-11.6)
[2017-02-27] MEDS: GALANTAMINE HYDROBROMIDE 4 MG TAB PO SCH (10:40)
[2017-02-27] MEDS: FLUCONAZOLE 100 MG TAB PO SCH (10:40)
[2017-02-27] MEDS: SERTRALINE HCL 50 MG TAB PO SCH ×2 (10:40→22:14)
[2017-02-27] MEDS: DILTIAZEM-CD 240 MG CAP ER PO SCH (10:41)
[2017-02-27] MEDS: MICONAZOLE NITRATE 2% CREAM 15 GM TOPICAL SCH ×2 (10:41→22:19)
[2017-02-27] MEDS: MEMANTINE HCL 10 MG TAB PO SCH ×2 (10:41→22:14)
[2017-02-27] MEDS: ATENOLOL 25 MG TAB PO SCH ×2 (10:41→22:15)
--- NOTE | 2017-02-27 11:41 | PD.CARD.PN ---
Subjective Subjective Remarks Pt w/o complaints. Objective Medications Administered Medications Medications (Trade) Dose Ordered Sig/Mary Route PRN Reason Start Time Stop Time Status Last Admin Dose Admin Nystatin (Mycostatin Powder) 1 applic Q8HR TOPICAL 02/20/17 17:45 02/27/17 05:44 Acetaminophen (Tylenol) 650 mg Q4H PRN PO fever or pain 1-10 02/20/17 18:15 02/24/17 21:04 Atorvastatin Calcium (Lipitor) 20 mg HS PO 02/20/17 21:00 02/26/17 21:39 Galantamine Hydrobromide (Razadyne) 16 mg DAILY PO 02/21/17 09:00 02/27/17 10:40 Levothyroxine Sodium (Synthroid) 75 mcg DAILY@0600 PO 02/21/17 06:00 02/27/17 05:43 Memantine (Namenda) 10 mg Q12HR PO 02/20/17 21:00 02/27/17 10:41 Sertraline HCl (Zoloft) 25 mg BID PO 02/20/17 21:00 02/27/17 10:40 Albuterol/ Ipratropium (Duoneb Neb) 1 ampule Q4HR NEB PRN NEB SOB/wheezing 02/20/17 18:30 02/23/17 07:31 Clonidine (Catapres) 0.1 mg Q6H PRN PO sbp greater 170 02/20/17 20:30 02/25/17 17:47 Ertapenem 1000 mg/ Sodium Chloride 100 ml @ 200 mls/hr Q24H IV 02/22/17 15:00 02/26/17 14:16 Miconazole Nitrate (Micatin 2% Cream) 1 applic Q12HR TOPICAL 02/22/17 14:00 02/27/17 10:41 Fluconazole (Diflucan) 100 mg DAILY PO 02/22/17 14:00 02/27/17 10:40 Diltiazem HCl (Cardizem Cd) 240 mg DAILY PO 02/24/17 09:00 02/27/17 10:41 Lorazepam (Ativan Inj) 0.5 mg Q6H PRN IV PUSH anxiety 02/25/17 15:00 02/25/17 15:07 Risperidone (risperDAL) 0.5 mg HS PO 02/25/17 21:00 02/26/17 21:39 Atenolol (Tenormin) 12.5 mg Q12HR PO 02/27/17 09:00 02/27/17 10:41 Vital Signs / I&O Vital Signs Date Time Temp Pulse Resp B/P (MAP) Pulse Ox O2 Delivery O2 Flow Rate FiO2 02/27/17 08:32 79 02/27/17 08:00 98.5 83 14 147/85 (105) 93 02/27/17 00:00 97.2 81 18 134/86 (102) 93 02/27/17 00:00 98.2 98 20 132/73 (92) 95 02/26/17 20:00 98.0 64 18 144/92 (109) 94 02/26/17 19:00 104 02/26/17 16:00 97.9 70 18 121/73 (89) 95 02/26/17 12:38 98.4 62 18 157/82 (107) 95 I/O 02/26/17 02/26/17 02/26/17 02/27/17 02/27/17 02/27/17 07:00 15:00 23:00 07:00 15:00 23:00 Intake Total 480 ml Output Total 700 ml Balance -700 ml 480 ml Intake Oral 480 ml Output Urine Total 700 ml # Voids 4 5 # Bowel Movements 1 1 Physical Exam GENERAL: This is a well-nourished, well-developed patient, in no apparent distress. CARDIOVASCULAR: Regular rate and irregular rhythm without murmurs, gallops, or rubs. RESPIRATORY: Clear to auscultation. Breath sounds equal bilaterally. No wheezes , rales, or rhonchi. GASTROINTESTINAL: Abdomen soft, non-tender, nondistended. Normal, active bowel sounds MUSCULOSKELETAL: Extremities without clubbing, cyanosis, or edema. NEURO: Alert & Oriented x4 to person, place, time, situation. Moves all ext x4 Laboratory Laboratory Tests Test 02/27/17 08:25 Prothrombin Time 19.5 SEC Prothromb Time International Ratio 1.7 RATIO Imaging Last Impressions Chest X-Ray 02/23/17 0000 Signed Impressions: Service Date/Time: Thursday, February 23, 2017 08:06 - CONCLUSION: Basilar airspace disease versus atelectasis. Jaxon Bartlett MD Renal Ultrasound 02/22/17 0000 Signed Impressions: Service Date/Time: Wednesday, February 22, 2017 20:49 - CONCLUSION: Normal ultrasound of the urinary system. There is no hydronephrosis. Stiven Berg MD Head CT 02/20/17 1701 Signed Impressions: Service Date/Time: Monday, February 20, 2017 18:00 - CONCLUSION: Negative noncontrast CT. 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 Will leave current medical mgt as is for now. She isn't on anticoagulation I presume due to fall risk, but will defer to her primary pulley man Dr. Dickens. (2) Dementia ICD Codes: F03.90 - Dementia Status: Chronic Assessment and Plan Will be available as needed Wednesday, please call with questions; Dr. Dickens will return Wednesday. Problem Qualifiers (1) Atrial fibrillation: Qualified Codes: I48.2 - Chronic atrial fibrillation (2) Dementia: Qualified Codes: F03.90 - Unspecified dementia without behavioral disturbance Virgil Donnelly MD Feb 27, 2017 11:41
[2017-02-27] MEDS: ERTAPENEM INJ 1,000 MG in SODIUM CHLORIDE 0.9% INJ 100 ML IV SCH (14:57)
[2017-02-27] MEDS ORDERED: WARFARIN SOD 5 MG TAB PO ONE (15:00)
--- NOTE | 2017-02-27 15:17 | HHI.PR ---
Subjective Remarks saw pt at 6:30am. She is awake and recognized me pleasant and has no complaint. She requested to use the bathroom and nurse and myself assisted her to the bathroom Pt used her walker and had fair balance. denies any cp or sob Objective Vitals mild/mod dementia cooperative follows commands. no labored breathing heart irreg lung cta abd s/nt ext no pitting. Vital Signs Date Time Temp Pulse Resp B/P (MAP) Pulse Ox O2 Delivery O2 Flow Rate FiO2 02/27/17 12:00 97.5 99 16 136/99 (111) 96 02/27/17 08:32 79 02/27/17 08:00 98.5 83 14 147/85 (105) 93 02/27/17 00:00 97.2 81 18 134/86 (102) 93 02/27/17 00:00 98.2 98 20 132/73 (92) 95 02/26/17 20:00 98.0 64 18 144/92 (109) 94 02/26/17 19:00 104 02/26/17 16:00 97.9 70 18 121/73 (89) 95 Result Diagram: 02/24/17 0510 02/25/17 0755 Imaging Last Impressions Chest X-Ray 02/23/17 0000 Signed Impressions: Service Date/Time: Thursday, February 23, 2017 08:06 - CONCLUSION: Basilar airspace disease versus atelectasis. Jaxon Bartlett MD Renal Ultrasound 02/22/17 0000 Signed Impressions: Service Date/Time: Wednesday, February 22, 2017 20:49 - CONCLUSION: Normal ultrasound of the urinary system. There is no hydronephrosis. Stiven Berg MD Head CT 02/20/17 1701 Signed Impressions: Service Date/Time: Monday, February 20, 2017 18:00 - CONCLUSION: Negative noncontrast CT. John Shepard MD A/P Problem List: (1) Altered mental status ICD Codes: R41.82 - Altered mental status, unspecified Status: Acute Plan: 1. delirium superimposed on mod dementia improved. initially related to uti/hyponatremia/dehydration/maryam now more related to her underlying cognitive deficits and being in an unfamiliar environement. ...overall stable today 2. uti. esbl ecoli. wbc normalized and no fever 3. hyponatremia resolved. related to dehydration 4. dehydration related to poor po intake and probably diarrhea prehospital. 5. maryam from dehydration resolved 6. chronic afib. developed bradycardia to 40s and pausing less 3 sec. then developed afib/rvr once bb stopped. coumadin was held due to supratherapeutic levels and abx interactions. 7. general weakness. related to acute illness and limited activity 8. fungal skin infection lower abdomen folds and inguinal area. cont cardizem 240mg daily. low dose bb added back due to uncontrolled afib last night... monitor for 24hrs and if controlled then plan for d/c to snf tomorrow. If not controlled then we will need to adjust and monitor her further in the hospital. 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 encourage more po intake. supplements. appetite has been poor. will d/c prn ativan. discussed stopped risperdal upon d/c with daughter as she transitions back to [facility]..daughter agrees. continue antifungals. cont Ertapenem. Abx for completed by ID and stop date Mar 04....Pt has already lost 1 picc/midline... discussed replacement vs calling snf to see if they could just do peripheral iv for remainding doses of abx...Aishwarya Barrera is ok with picc if necessary. CM will ask [facility]. I spoke to aishwarya Barrera today by phone and we discussed each medical condition in detail including medications. We discussed barriers to d/c. She would like [facility] then transition to [facility]... again d/c tomorrow if afib controllled, picc placed if needed, and the snf has a bed available. will call aishwarya Barrera tomorrow between 6:30-7 AM per our discussion today for update. (2) Dementia ICD Codes: F03.90 - Dementia Status: Acute Plan: -see above (3) Atrial fibrillation ICD Codes: I48.91 - Atrial fibrillation Status: Acute Plan: as above (4) Infection due to ESBL-producing Escherichia coli ICD Codes: A49.8 - Other bacterial infections of unspecified site; Z16.12 - Extended spectrum beta lactamase (ESBL) resistance Status: Acute Plan: - see above (5) Supratherapeutic INR ICD Codes: R79.1 - Abnormal coagulation profile Status: Acute Plan: - as above (6) Fungal infection of skin of abdomen ICD Codes: B36.9 - Superficial mycosis, unspecified Status: Acute Plan: - as above (7) HTN (hypertension) ICD Codes: I10 - Hypertension Status: Chronic Plan: - stable - Cardizem CD increased 02/23, atenolol - continue to observe BP readings (8) Diabetes ICD Codes: E11.9 - Diabetes mellitus Status: Chronic Plan: - Diet controlled diabetes - Last Hgb A1C was 6.4% 07/2016 Problem Qualifiers (1) Altered mental status: Qualified Codes: R41.82 - Altered mental status, unspecified (2) Dementia: Qualified Codes: F03.90 - Unspecified dementia without behavioral disturbance (3) Atrial fibrillation: Qualified Codes: I48.2 - Chronic atrial fibrillation (4) HTN (hypertension): Qualified Codes: I10 - Essential (primary) hypertension (5) Diabetes: Herber Boles MD Feb 27, 2017 15:17
[2017-02-27] MEDS: risperiDONE 0.5 MG TAB PO SCH (22:14)
[2017-02-27] MEDS: ATORVASTATIN 20 MG TAB PO SCH (22:15)
[2017-02-28] VITALS (8 sets, daily range): BP systolic 131–182; BP diastolic 80–98; PULSE 64–90; RESP 16–18; TEMP 97.2–97.7; O2SAT 93–96
[2017-02-28] MEDS: NYSTATIN 100,000 U/GM PWD 15 GM BTL TOPICAL SCH ×3 (05:54→20:36)
[2017-02-28] MEDS: LEVOTHYROXINE SODIUM 75 MCG TAB PO SCH (05:55)
[2017-02-28] MEDS: cloNIDine HCL 0.1 MG TAB PO PRN (05:59)
[2017-02-28] MEDS ORDERED: NYST10007 TOPICAL (07:03)
[2017-02-28] MEDS ORDERED: INVA1INJ IV (07:03)
[2017-02-28] MEDS ORDERED: CARD240C6 PO (07:04)
[2017-02-28] MEDS ORDERED: ATEN25TA PO ×2 (07:04)
--- NOTE | 2017-02-28 07:07 | HHI.DCPOC ---
Discharge Care Plan Diagnosis: (1) Hyponatremia (2) MADDIE (acute kidney injury) (3) Altered mental status (4) Infection due to ESBL-producing Escherichia coli (5) Rapid atrial fibrillation (6) Fungal infection of skin of abdomen (7) Supratherapeutic INR (8) Memory disorder (9) Hypothyroid (10) HTN (hypertension) (11) Hyperlipidemia Goals to Promote Your Health * To prevent worsening of your condition and complications * To maintain your health at the optimal level Directions to Meet Your Goals Take your medications as prescribed Follow your dietary instruction Follow activity as directed Keep your appointments as scheduled Take your immunizations and boosters as scheduled If your symptoms worsen call your PCP, if no PCP go to Urgent Care Center or Emergency Room Smoking is Dangerous to Your Health. Avoid second hand smoke Call the 24-hour hour crisis hotline for domestic abuse at Herber Boles MD Feb 28, 2017 07:07
[2017-02-28 08:42] LABS: INTERNATIONAL NORMALIZED RATIO 1.9 RATIO; PROTHROMBIN TIME - PATIENT 21.7 SEC (9.8-11.6)
[2017-02-28] MEDS: GALANTAMINE HYDROBROMIDE 4 MG TAB PO SCH (10:10)
[2017-02-28] MEDS: ATENOLOL 25 MG TAB PO SCH (10:11)
[2017-02-28] MEDS: MEMANTINE HCL 10 MG TAB PO SCH ×2 (10:11→20:34)
[2017-02-28] MEDS: FLUCONAZOLE 100 MG TAB PO SCH (10:11)
[2017-02-28] MEDS: DILTIAZEM-CD 240 MG CAP ER PO SCH (10:11)
[2017-02-28] MEDS: SERTRALINE HCL 50 MG TAB PO SCH ×2 (10:11→20:33)
[2017-02-28] MEDS: MICONAZOLE NITRATE 2% CREAM 15 GM TOPICAL SCH ×2 (10:12→20:34)
[2017-02-28] MEDS: ERTAPENEM INJ 1,000 MG in SODIUM CHLORIDE 0.9% INJ 100 ML IV SCH (15:03)
[2017-02-28] MEDS ORDERED: WARFARIN SOD 5 MG TAB PO ONE (16:00)
--- NOTE | 2017-02-28 17:44 | HHI.PR ---
Subjective Remarks no new concerning events overnight pt was oob yesterday. Objective Vitals heart irreg lung cta abd s/nt ext no edema pleasant. dementia Vital Signs Date Time Temp Pulse Resp B/P (MAP) Pulse Ox O2 Delivery O2 Flow Rate FiO2 02/28/17 16:32 97.2 78 16 135/81 (99) 96 02/28/17 12:13 97.2 82 16 131/80 (97) 93 02/28/17 10:35 71 02/28/17 06:44 133/80 (97) 02/28/17 05:00 97.5 90 18 182/86 (118) 95 02/28/17 00:10 97.7 64 18 175/94 (121) 95 02/27/17 22:14 81 02/27/17 20:00 97.7 91 16 144/86 (105) 95 02/28/17 02/28/17 03/01/17 15:00 23:00 07:00 Intake Total 820 ml 100 ml Balance 820 ml 100 ml Intake Oral 820 ml IV Total 100 ml # Voids 1 1 Result Diagram: 02/24/17 0510 02/25/17 0755 Imaging Last Impressions Chest X-Ray 02/23/17 0000 Signed Impressions: Service Date/Time: Thursday, February 23, 2017 08:06 - CONCLUSION: Basilar airspace disease versus atelectasis. Jaxon Bartlett MD Renal Ultrasound 02/22/17 0000 Signed Impressions: Service Date/Time: Wednesday, February 22, 2017 20:49 - CONCLUSION: Normal ultrasound of the urinary system. There is no hydronephrosis. Stiven Berg MD Head CT 02/20/17 1701 Signed Impressions: Service Date/Time: Monday, February 20, 2017 18:00 - CONCLUSION: Negative noncontrast CT. John Shepard MD A/P Problem List: (1) Altered mental status ICD Codes: R41.82 - Altered mental status, unspecified Status: Acute Plan: 1. delirium superimposed on mod dementia improved. initially related to uti/hyponatremia/dehydration/maryam now more related to her underlying cognitive deficits and being in an unfamiliar environement. ...overall stable today 2. uti. esbl ecoli. wbc normalized and no fever 3. hyponatremia resolved. related to dehydration 4. dehydration related to poor po intake and probably diarrhea prehospital. 5. maryam from dehydration resolved 6. chronic afib. developed bradycardia to 40s and pausing less 3 sec. then developed afib/rvr once bb stopped. coumadin was held due to supratherapeutic levels and abx interactions. 7. general weakness. related to acute illness and limited activity 8. fungal skin infection lower abdomen folds and inguinal area. cont cardizem 240mg daily. low dose bb added back due uncontrolled afib. If not controlled then we will need to adjust and monitor her further in the hospital. resumed coumadin security monitor oob/ambulate with staff. encourage more po intake. supplements. appetite has been poor. discussed stopped risperdal upon d/c with daughter as she transitions back to [facility]..daughter agrees. continue antifungals. cont Ertapenem. Abx for completed by ID and stop date Mar 04....Pt has already lost 1 picc/midline... discussed replacement vs calling snf to see if they could just do peripheral iv for remainding doses of abx...Aishwarya Barrera is ok with picc if necessary. I spoke to aishwarya Barrera today by phone and we discussed each medical condition in detail. addendum: The plan was for d/c to snf today. I spoke to dr Elizondo who will care for her at [facility]. I am told the snf will not admit any patient on Wednesday and it will be deferred until tomorrow. prelimarily they will need a picc. I will order a holter for her to be monitored at [facility]. (2) Dementia ICD Codes: F03.90 - Dementia Status: Acute Plan: -see above (3) Atrial fibrillation ICD Codes: I48.91 - Atrial fibrillation Status: Acute Plan: as above (4) Infection due to ESBL-producing Escherichia coli ICD Codes: A49.8 - Other bacterial infections of unspecified site; Z16.12 - Extended spectrum beta lactamase (ESBL) resistance Status: Acute Plan: - see above (5) Supratherapeutic INR ICD Codes: R79.1 - Abnormal coagulation profile Status: Acute Plan: - as above (6) Fungal infection of skin of abdomen ICD Codes: B36.9 - Superficial mycosis, unspecified Status: Acute Plan: - as above (7) HTN (hypertension) ICD Codes: I10 - Hypertension Status: Chronic Plan: - stable - Cardizem CD increased 02/23, atenolol - continue to observe BP readings (8) Diabetes ICD Codes: E11.9 - Diabetes mellitus Status: Chronic Plan: - Diet controlled diabetes - Last Hgb A1C was 6.4% 07/2016 Problem Qualifiers (1) Altered mental status: Qualified Codes: R41.82 - Altered mental status, unspecified (2) Dementia: Qualified Codes: F03.90 - Unspecified dementia without behavioral disturbance (3) Atrial fibrillation: Qualified Codes: I48.2 - Chronic atrial fibrillation (4) HTN (hypertension): Qualified Codes: I10 - Essential (primary) hypertension (5) Diabetes: Herber Boles MD Feb 28, 2017 17:44
[2017-02-28] MEDS ORDERED: LORazepam 2 MG/ML VIAL IV PUSH ONE (17:45)
[2017-02-28] MEDS: risperiDONE 0.5 MG TAB PO SCH (20:33)
[2017-02-28] MEDS: ATORVASTATIN 20 MG TAB PO SCH (20:34)
[2017-02-28] MEDS ORDERED: ATENOLOL 25 MG TAB PO SCH (21:00)
[2017-03-01] VITALS: BP 181/74; PULSE 72; RESP 18; TEMP 97.7; O2SAT 95
[2017-03-01 06:00] VITALS: BP 149/77; PULSE 71; RESP 16; TEMP 97.4; O2SAT 95
[2017-03-01] MEDS: NYSTATIN 100,000 U/GM PWD 15 GM BTL TOPICAL SCH ×2 (06:00→13:02)
[2017-03-01] MEDS: LEVOTHYROXINE SODIUM 75 MCG TAB PO SCH (06:25)
--- NOTE | 2017-03-01 07:52 | PD.CARD.PN ---
Subjective Subjective Remarks Awake and alert. No complaint. Disoriented to time and place. Objective Vital Signs / I&O Vital Signs Date Time Temp Pulse Resp B/P (MAP) Pulse Ox O2 Delivery O2 Flow Rate FiO2 03/01/17 06:00 97.4 71 16 149/77 (101) 95 03/01/17 00:00 97.7 72 18 181/74 (109) 95 02/28/17 21:30 72 02/28/17 20:00 97.4 87 18 135/98 (110) 95 02/28/17 16:32 97.2 78 16 135/81 (99) 96 02/28/17 12:13 97.2 82 16 131/80 (97) 93 02/28/17 10:35 71 I/O 02/28/17 02/28/17 02/28/17 03/01/17 03/01/17 03/01/17 07:00 15:00 23:00 07:00 15:00 23:00 Intake Total 820 ml 100 ml Balance 820 ml 100 ml Intake Oral 820 ml IV Total 100 ml # Voids 3 1 2 2 # Bowel Movements 0 1 Physical Exam Lungs clear irregular HR. [id number]. BP stable Assessment and Plan Problem List: (1) Atrial fibrillation ICD Codes: I48.91 - Atrial fibrillation Status: Acute Plan: Stable recommend resuming warfarin at previous dose with daily INR while on anti-biotics. 5 day event monitor when she goes back to [facility] to ensure controlled HR. (2) Dementia ICD Codes: F03.90 - Dementia Status: Acute Problem Qualifiers (1) Atrial fibrillation: Qualified Codes: I48.2 - Chronic atrial fibrillation (2) Dementia: Qualified Codes: F03.90 - Unspecified dementia without behavioral disturbance Natan Dickens MD Mar 01, 2017 07:52
[2017-03-01 08:51] VITALS: BP 139/88; PULSE 85; RESP 18; TEMP 97.3; O2SAT 95
[2017-03-01] MEDS: MICONAZOLE NITRATE 2% CREAM 15 GM TOPICAL SCH (09:00)
[2017-03-01] MEDS: SERTRALINE HCL 50 MG TAB PO SCH (09:28)
[2017-03-01] MEDS: GALANTAMINE HYDROBROMIDE 4 MG TAB PO SCH (09:29)
[2017-03-01] MEDS: ATENOLOL 25 MG TAB PO SCH (09:29)
[2017-03-01] MEDS: MEMANTINE HCL 10 MG TAB PO SCH (09:29)
[2017-03-01] MEDS: DILTIAZEM-CD 240 MG CAP ER PO SCH (09:29)
[2017-03-01] MEDS: FLUCONAZOLE 100 MG TAB PO SCH (09:29)
[2017-03-01 09:35] LABS: INTERNATIONAL NORMALIZED RATIO 2.9 RATIO; PROTHROMBIN TIME - PATIENT 33.7 SEC (9.8-11.6)
[2017-03-01] MEDS ORDERED: INVA1INJ IV (10:51)
--- NOTE | 2017-03-01 11:22 | HHI.DS ---
Discharge Summary Admission Date Feb 20, 2017 at 17:50 Discharge Date: Mar 01, 2017 Admitting Diagnosis Altered mental status (1) Altered mental status Diagnosis: Principal ICD Codes: R41.82 - Altered mental status, unspecified Status: Acute (2) Atrial fibrillation Diagnosis: Principal ICD Codes: I48.91 - Atrial fibrillation Status: Acute (3) Hyponatremia Diagnosis: Principal ICD Codes: E87.1 - Hypo-osmolality and hyponatremia (4) MADDIE (acute kidney injury) Diagnosis: Principal ICD Codes: N17.9 - Acute kidney failure, unspecified (5) Infection due to ESBL-producing Escherichia coli Diagnosis: Principal ICD Codes: A49.8 - Other bacterial infections of unspecified site; Z16.12 - Extended spectrum beta lactamase (ESBL) resistance Status: Acute (6) Supratherapeutic INR Diagnosis: Principal ICD Codes: R79.1 - Abnormal coagulation profile Status: Acute (7) Fungal infection of skin of abdomen Diagnosis: Principal ICD Codes: B36.9 - Superficial mycosis, unspecified Status: Acute (8) HTN (hypertension) Diagnosis: Secondary ICD Codes: I10 - Hypertension Status: Chronic (9) Diabetes Diagnosis: Secondary ICD Codes: E11.9 - Diabetes mellitus Status: Chronic (10) Dementia Diagnosis: Secondary ICD Codes: F03.90 - Dementia Status: Acute Brief History Mrs. Keith is a pleasant 77 y/o WF with A. fibrillation on chronic anticoagulation with Coumadin, HTN, hyperlipidemia, diet controlled diabetes mellitus, and dementia. Pt was brought to the ED from her local [facility] by her daughter for AMS. Her daughter, Holly, is at the bedside and she states that she was called by the nursing staff at [facility] yesterday and was told that the patient didn't seem to be "acting like herself." Apparently they pts dishes were still in the sink and the kitchen was a bit messy which is unusual for her. Her daughter had a nurse go check on her as she was out of town and the nurse reported that the patient seemed to be doing well. When her daughter went to check on the patient today she noted that the patient seemed to be more confused than her baseline and was more lethargic. There was some noted diarrhea on the bedsheets and the pt was unaware of this and could not recall having had diarrhea at that time. Pt now reports two episodes of diarrhea yesterday. She relates this to foods she has eaten. She also noted some slight dizziness today and felt like she might fall but has not fallen. Described it more as vertigo like symptoms with the room spinning when she stood up but this resolved on its own. She reports that she has had this intermittent dizziness for several months, which typically occurs when she stand up. Denies any fevers/ chills, abd pain, nausea/vomiting, SOB, chest pain, or palpitations. Denies any urinary frequency, dysuria, or hematuria. No reported sore throat, cough, congestion, headache, or rhinorrhea. She reports that she has been eating and drinking normally. At the time of examination in the ED pt was noted to have what appears to be a significant dali infection in the inguinal area and under the skin folds of the lower abdomen, worse on the right side. Pt reports that this has been an issues for some time but has not reported this to anyone. Her daughter was unaware of this. CBC/BMP: 02/25/17 0755 Significant Findings Laboratory Tests Test 02/27/17 08:25 02/28/17 06:46 03/01/17 09:01 Prothrombin Time 19.5 SEC (9.8-11.6) 21.7 SEC (9.8-11.6) 33.7 SEC (9.8-11.6) Hospital Course (1) Altered mental status ICD Codes: R41.82 - Altered mental status, unspecified Status: Acute Plan: 1. delirium superimposed on mod dementia improved. initially related to uti/hyponatremia/dehydration/maddie now more related to her underlying cognitive deficits and being in an unfamiliar environement. ...overall stable today 2. uti. esbl ecoli. wbc normalized and no fever 3. hyponatremia resolved. related to dehydration 4. dehydration related to poor po intake and probably diarrhea prehospital. 5. maddie from dehydration resolved 6. chronic afib. developed bradycardia to 40s and pausing less 3 sec. then developed afib/rvr once bb stopped. coumadin was held due to supratherapeutic levels and abx interactions. 7. general weakness. related to acute illness and limited activity 8. fungal skin infection lower abdomen folds and inguinal area. cont cardizem 240mg daily. low dose bb added back due uncontrolled afib. She was seen by dr Dickens on day of d/c. We discussed the case. cont current medication and send her with 5 day event monitor and see her in office next week. resumed coumadin. monitor daily while on abx. hold if inr over 3. oob/ambulate with staff. encourage more po intake. supplements. appetite has been poor. discussed stopping risperdal upon d/c with daughter as she transitions back to [facility]..daughter agrees. continue antifungals. cont Ertapenem. Abx for completed by ID and stop date Mar 04....Pt has already lost 2 picc/midline... discussed replacement vs calling snf to see if they could just do peripheral iv for remainding doses of abx...Daughter Holly is ok with picc if necessary. will place today since [facility] refuses to use peripheral iv. I spoke to dr Elizondo who will care for her at [facility]. d/c to snf today. (2) Dementia ICD Codes: F03.90 - Dementia Status: Acute Plan: -see above (3) Atrial fibrillation ICD Codes: I48.91 - Atrial fibrillation Status: Acute Plan: as above (4) Infection due to ESBL-producing Escherichia coli ICD Codes: A49.8 - Other bacterial infections of unspecified site; Z16.12 - Extended spectrum beta lactamase (ESBL) resistance Status: Acute Plan: - see above (5) Supratherapeutic INR ICD Codes: R79.1 - Abnormal coagulation profile Status: Acute Plan: - as above (6) Fungal infection of skin of abdomen ICD Codes: B36.9 - Superficial mycosis, unspecified Status: Acute Plan: - as above (7) HTN (hypertension) ICD Codes: I10 - Hypertension Status: Chronic Plan: - stable - Cardizem CD increased 02/23, atenolol - continue to observe BP readings (8) Diabetes ICD Codes: E11.9 - Diabetes mellitus Status: Chronic Plan: - Diet controlled diabetes - Last Hgb A1C was 6.4% 07/2016 Pt Condition on Discharge: Stable Discharge Disposition: Discharge to SNF Discharge Instructions DIET: Follow Instructions for: Diabetic Diet Additional Diet Instructions: glucerna tid Activities you can perform: Regular-No Restrictions Other Activity Instructions: using walker and assistance to improve gait and balance at snf Follow up Referrals: Cardiology - [address] dickens PCP Follow-up - [address] lopez New Medications: Ertapenem Inj (Invanz Inj) 1 Gm Addvial 1 GM IV Q24H for Infection for 3 Days, INJECTION 0 Refills ADMINISTER IN 100ML NS Atenolol (Atenolol) 25 Mg Tab 12.5 MG PO HS for atrial fib, #30 TAB Atenolol (Atenolol) 25 Mg Tab 25 MG PO DAILY for atrial fib, #30 TAB Diltiazem CD 24 HR (Cardizem CD 24 HR) 240 Mg Caper 240 MG PO DAILY for atrial fib, #30 CAP Nystatin Topical (Nystop Topical) 100,000 Unit/Gm Powd 1 APPLIC TOPICAL Q8HR for Infection for 7 Days, PKG apply to inguinal and lower abdomen fold yeast infections Continued Medications: Atorvastatin (Atorvastatin) 20 Mg Tab 20 MG PO HS for Cholesterol Management, #30 TAB 0 Refills Calcium Carbonate (Calcium Carbonate) 500 Mg Calcium (1250 Mg) Tab 1250 MG PO DAILY for Calcium Supplement, TAB 0 Refills 1,250 mg calcium carbonate (500 mg elemental calcium) Cholecalciferol (Vitamin D3) 400 Unit Cap 400 UNITS PO DAILY for Nutritional Supplement, #1 BOTTLE 0 Refills Cyanocobalamin (Vitamin B-12) 1,000 Mcg Tab 1000 MCG PO DAILY for Nutritional Supplement, #1 BOTTLE 0 Refills Galantamine ER (Galantamine ER) 16 Mg Caper 16 MG PO DAILY for Alzheimer's Dementia, #30 CAP 0 Refills Levothyroxine (Levothyroxine) 75 Mcg Tab 75 MCG PO DAILY for Thyroid, #30 TAB 0 Refills Memantine (Namenda) 10 Mg Tab 10 MG PO BID for Alzheimer Disease, #30 TAB 0 Refills Multivitamin (Once Daily) 1 Each Tablet 1 TAB PO DAILY Sertraline (Sertraline) 25 Mg Tab 25 MG PO BID, #30 TAB 0 Refills Umeclidinium-Vilanterol Inh (Anoro Ellipta Inh) 62.5-25 Mcg/Act Aero 1 PUFF INH DAILY for COPD, #1 INHALER 0 Refills Warfarin (Coumadin) 2.5 Mg Tab 2.5 MG PO MWF for Prevent Blood Clot, #30 TAB 0 Refills Warfarin (Coumadin) 5 Mg Tab 5 MG PO SUN,TUES,CARMEN,SAT for Blood Clot Prevention, #30 TAB 0 Refills Discontinued Medications: Atenolol (Atenolol) 50 Mg Tab 50 MG PO BID for Blood Pressure Management, #14 TAB 0 Refills Diltiazem CD 24 HR (Diltiazem CD 24 HR) 120 Mg Caper 120 MG PO DAILY, #30 CAP 0 Refills Doxycycline Hyclate (Doxycycline Hyclate) 100 Mg Cap 100 MG PO 3XWEEK for Infection, CAP 0 Refills Herber Boles MD Mar 01, 2017 11:22
[2017-03-01] MEDS: ERTAPENEM INJ 1,000 MG in SODIUM CHLORIDE 0.9% INJ 100 ML IV SCH (13:02)
[2017-03-01 13:13] VITALS: BP 149/90; PULSE 86; RESP 18; TEMP 97.6; O2SAT 94
[2017-03-01 16:38] VITALS: BP 131/77; PULSE 76; RESP 18; TEMP 97.4; O2SAT 93
--- NOTE | 2017-03-07 14:17 | PQ ---
Physician Query Response Document PATIENT: SUZETTE MURO : 1940 ADMIT DATE: 02/20/2017 5:50 PM DISCH DATE: 03/01/2017 4:44 PM RESPONDING PROVIDER #: Rbraithw QUERY TEXT: Conflicting Documentation Clarification A single mention or documentation of multiple diagnoses for the same clinical presentation appears in the record. Please clarify the diagnosis/diagnoses. Please also document if the condition is: -- Confirmed and current -- Confirmed, treated and resolved -- Ruled out -- Other, please specify Your prompt response is appreciated, please do not hesitate to contact the CDI/Coding Hotline with an y questions, comments and/or concerns you may have at [phone]. [phone]. The patient's Clinical Indicators include: SEPSIS PRESENT ON ADMISSION (ELEVATED WBC,TACHY WITH UTI SOURCE) ESBL E.COLI UTI. - iNFECTIOUS DIS EASE CONSULT 02/22 [id number] 02/20 ACUTE RENAL FAILURE ON ADMISSION: INFECT DZ CONSULT DISCHARGE SUMMARY: INFECTION DUE TO ESBL E. COLI UNSPECIFIED SITE, FUNGAL INFECTION OF SKIN, UTI, AK I, ALTERED MENTAL STATUS, DELIRIUM SUPERIMPOSED ON DEMENTIA INITIALLY RELATED TO UTI, HYPONATREMIA. PLEASE CLARIFY IF SEPSIS WAS TREATED OR IF PATIENT ONLY HAD UTI WITHOUT SEPSIS. Query created by: Viiv Gale on 03/02/2017 3:23 PM RESPONSE TEXT: Patient had uti with esbl ecoli and no sepsis. QUERY TEXT: Clarification of Clinical Diagnostic Findings Please clarify documentation or clinical relevance for the clinical / diagnostic findings or whether those are insignificant or unable to be further specified. WAS PATIENT'S DELIRIUM RELATED TO ACUTE METABOLIC ENCEPHALOPATY DUE TO INFECTION OR WAS THE ENCEPHALO ALEXANDER RULED OUT? The patient's Clinical Indicators include: METABOLIC ENCEPHALOPATHY, SEPSIS WITH UTI ESBL E.COLI SOURCE.-INFECTIOUS DZ CONSULT ALTERED MENTAL STATUS: H DEMENTIA, EXPERIENCED SUNDOWNING , 02/26 NOTES DELIRIUM SUPERIMPSED ON DEMENTIA, INITIALLY RELATED TO UTI, HYPONATREMIA, DEHYDRATION, MADDIE-DISCHARGE SUMMARY Query created by: Vivi Gale on 03/02/2017 3:34 PM RESPONSE TEXT: Patient had acute delirium related to both uti and metabolic issues to include dehydration/hyponatrem ia./maddie Electronically signed by: Herber Boles MD 03/07/2017 2:14 PM
[2017-03-09] MEDS ORDERED: COUM2.5T PO (13:02)
[2017-03-09] MEDS ORDERED: COUM5TAB PO (13:02)
== END 2017-03-01 16:44 | DRG 683 ==
LOC: NEPE 16:30 → NEDA 17:50 → N05A 19:07
PROVIDERS: ADMIT Hospitalist; ATTEND Hospitalist
DX: N17.9 Acute kidney failure, unspecified (principal); N39.0 Urinary tract infection, site not specified; E11.42 Type 2 diabetes mellitus with diabetic polyneuropathy; I49.5 Sick sinus syndrome; F05 Delirium due to known physiological condition; I48.2 Chronic atrial fibrillation; F03.90 Unspecified dementia, unspecified severity, without behavioral disturbance, psychotic disturbance, mood disturbance, and anxiety; I50.9 Heart failure, unspecified; I11.0 Hypertensive heart disease with heart failure; E87.1 Hypo-osmolality and hyponatremia; B37.2 Candidiasis of skin and nail; M06.9 Rheumatoid arthritis, unspecified; K76.0 Fatty (change of) liver, not elsewhere classified; J44.9 Chronic obstructive pulmonary disease, unspecified; E03.9 Hypothyroidism, unspecified; E78.5 Hyperlipidemia, unspecified; K58.0 Irritable bowel syndrome with diarrhea; K21.9 Gastro-esophageal reflux disease without esophagitis; I87.2 Venous insufficiency (chronic) (peripheral); E86.0 Dehydration; B96.20 Unspecified Escherichia coli [E. coli] as the cause of diseases classified elsewhere; R79.1 Abnormal coagulation profile; Z16.12 Extended spectrum beta lactamase (ESBL) resistance; Z78.1 Physical restraint status; Z79.01 Long term (current) use of anticoagulants; Z87.891 Personal history of nicotine dependence; Z88.0 Allergy status to penicillin; Z88.1 Allergy status to other antibiotic agents; Z88.2 Allergy status to sulfonamides
CPT/HCPCS: 36569; 70450; 71010; 76775; 76937; 80048; 80053; 81001; 82550; 82552; 83605; 83735; 84443; 84484; 85025; 85610; 85730; 87040; 87077; 87086; 87186; 87493; 93005; 93270; 94664; J0692; J1335; J2060; J7030; P9612